=== PATIENT | male | born 1940 | race Caucasian/White ===

== ENCOUNTER 2016-09-18 12:19 | Inpatient (IN) ==
[2016-09-18] MEDS ORDERED: SODIUM CHLORIDE 0.9% 1,000 ML IV STA (12:52)
--- NOTE | 2016-09-18 12:54 | Emergency Department Note ---
Arrival - Arrival ED Nursing Triage Note: COMPLAINS OF BEING DIZZY AND ABD. PAIN FOR THE PAST WEEK. Mode of Arrival: Wheelchair Limitations: No Limitations Source: Patient - History of Present Illness Onset (ago): week(s) (1) Severity: mild <Velasquez Aguilera - Last Filed: 09/18/16 14:18> <Sterling Amaya Jr. - Last Filed: 09/18/16 14:59> - Arrival Chief Complaint: Abdominal / Flank Pain Stated Complaint: stomach and dizzy Time Seen by Provider: 09/18/16 12:43 - History of Present Illness HPI Narrative: This is a 76-year-old white male who is complaining of nausea/vomiting/diarrhea and diffuse abdominal pain for approximately 1 week. He also states that he is dizzy at times when he stands up. He states that he has seen his primary care provider and has been taking medicine for diarrhea and for nausea, and it seems to be better but he still feels ill. He is unsure of the number of episodes of vomiting and diarrhea that he has had in the past week. He states that he has been hydrating with mostly water but some Gatorade. He denies any fevers, dysuria, or any other symptoms at present. (Velasquez Aguilera) Allergies/Adverse Reactions: Allergies Allergy/AdvReac Type Severity Reaction Status Date / Time codeine Allergy Agitated Verified 09/18/16 12:36 Home Medications: Home Medications Medication Instructions Recorded Confirmed Type Allopurinol 100 mg PO QAM 09/18/16 09/18/16 History Amlodipine Besylate 10 mg PO QAM 09/18/16 09/18/16 History Clopidogrel Bisulfate [Clopidogrel] 75 mg PO QAM 09/18/16 09/18/16 History Esomeprazole Magnesium [Nexium] 20 mg PO BEDTIME PRN 09/18/16 09/18/16 History Hyoscyamine Sulfate 0.125 mg PO Q4H PRN 09/18/16 09/18/16 History Linagliptin [Tradjenta] 5 mg PO QAM 09/18/16 09/18/16 History Lisinopril 20 mg PO QAM 09/18/16 09/18/16 History Loperamide HCl [Loperamide] 2 mg PO Q6H PRN 09/18/16 09/18/16 History Omeprazole 20 mg PO QAM 09/18/16 09/18/16 History glipiZIDE [Glipizide ER] 2.5 mg PO DAILY W/BREAKFAST 09/18/16 09/18/16 History Review of System - Review of System 12 point system: reviewed and no additional remarkable complaints except as stated - Review of System Constitutional: Present: as per HPI. Absent: fever Gastrointestinal: Present: as per HPI, abdominal pain, nausea, vomiting, diarrhea <Velasquez Aguilera - Last Filed: 09/18/16 14:18> Medical,Surgical,& Family Hx - Medical History Cardio: History of: Hypertension Endocrine: History of: Diabetes Mellitus (NIDDM) - Surgical History Cardiac Surgeries: Sugical HX of: Cardiac Catheterization (STENTS) - Social History Smoking Status: Unknown if ever smoked <Velasquez Aguilera - Last Filed: 09/18/16 14:18> Exam <Velasquez Aguilera - Last Filed: 09/18/16 14:18> <Sterling Amaya Jr. - Last Filed: 09/18/16 14:59> Physical Examination: - General General appearance: [alert, in mild to moderate distress] - Head Head exam: [Present: atraumatic, normocephalic, normal inspection] - Eye Eye exam: [Present: normal appearance, PERRL, EOMI] - ENT ENT exam: [Present: normal exam, normal oropharynx, mucous membranes moist, TM' s normal bilaterally, normal external ear exam] - Neck Neck exam: [Present: normal inspection, full ROM, trachea midline] - Chest Chest inspection: [Present: normal inspection, symmetric chest wall rise] - Respiratory Respiratory exam: [Present: normal lung sounds bilaterally] - Cardiovascular Cardiovascular exam: [Present: regular rate, normal rhythm, normal heart sounds] - Abdominal Exam Abdominal exam: [Present: soft, normal bowel sounds. Exception: There is diffuse tenderness on palpation.] - Extremities Exam Extremities exam: [Present: normal inspection, full ROM] - Back Exam Back exam: [Present: normal inspection, full ROM] - Neurological Exam Neurological exam: [Present: alert, oriented X3] - Psychiatric Psychiatric exam: [Present: normal affect, normal mood] - Skin Skin exam: [Present: warm, dry, intact, normal color] (Velasquez Aguilera) Vital Signs: Vital Signs Temperature 98.1 F 09/18/16 12:45 Pulse Rate 83 09/18/16 14:30 Respiratory Rate 18 09/18/16 14:30 Blood Pressure 154/93 09/18/16 14:30 O2 Sat by Pulse Oximetry 98 09/18/16 12:29 Course - Consultations Time: 13:45 <Velasquez Aguilera - Last Filed: 09/18/16 14:18> - Reevaluation(s) Time: 14:28 - Consultations Time: 14:56 <Sterling Amaya Jr. - Last Filed: 09/18/16 14:59> - Reevaluation(s) Reevaluation #1: Assumed patient care at this time. pt with anemia, near syncope, dizziness, renal insufficiency, abdominal pain, upper GI bleed, hospitalist, to evaluate the patient for admission. We are waiting on their eval. (Sterling Amaya Jr.) - Consultations Consultation #1: I spoke with Raul and hospitalist services, and they will come see the patient in nonurgent. (Velasquez Aguilera) Consultation #2: Hospitalists have evaluated this patient and accept him for admission. (Sterling Amaya Jr.) Results - Labs CBC & BMP: 09/18/16 12:51 09/18/16 12:51 Lab Results: I have reviewed the patients labs <Velasquez Aguilera - Last Filed: 09/18/16 14:18> - Labs CBC & BMP: 09/18/16 12:51 09/18/16 12:51 Lab Results: I have reviewed the patients labs <Sterling Amaya Jr. - Last Filed: 09/18/16 14:59> - Labs Labs: Patient is heme positive. (Velasquez Aguilera) Disposition Case discussed with: patient <Velasquez Aguilera - Last Filed: 09/18/16 14:18> Case discussed with: patient Time of Disposition: 14:57 <Sterling Amaya Jr. - Last Filed: 09/18/16 14:59> Clinical Impression: GI bleeding, Near syncope, Dizziness, Anemia, Renal insufficiency Disposition: Still a Patient Condition: Stable
[2016-09-18 13:01] LABS: Basophils % 0.6 % (0.0-0.8); Eosinophils # 0.2 10*3/uL (0.0-0.87); Eosinophils % 2.3 % (0.00-10.9); Hematocrit 27.1 VOL% (42.0-52.0); Hemoglobin 8.5 GM/DL (14.0-18.0); Immature Granulocytes % 0.4 %; Immature Granulocytes Absolute 0.03 #; Lymphocytes # 1.7 10*3/uL (1.4-4.0); Lymphocytes % 24.8 % (21.2-54.2); Mean Corpuscular HGB Conc 31.4 GM/DL (32-36); Mean Corpuscular Hemoglobin 24 PG (27-34); Mean Corpuscular Volume 75.1 FL (87-102); Monocytes # 0.7 10*3/uL (0.11-0.8); Monocytes % 9.4 % (1.7-12.7); Neutrophils # 4.4 10*3/uL (1.4-7.4); Neutrophils % 62.5 % (38.7-73.9); Platelet Count 223 T/CUMM (130-400); Red Blood Count 3.61 MC/CUMM (3.8-5.5); Red Cell Distribution Width 22.4 % (9.3-17.3)
[2016-09-18 13:06] LABS: Apearance,Urine CLEAR (Clear); Bilirubin,Urine Negative (Negative); Blood, Urine Negative (Negative); Glucose,Urine (UA) Negative (Negative); Hyaline Casts,Urine 7 /LPF (0-3); Ketones,Urine Negative (Negative); Mucus,Urine Occasional /LPF (Occasional); Nitrite,Urine Negative (Negative); Protein,Urine 30 MG/DL; RBC,Urine 3 /HPF (0-4); Urine Color Yellow (Yellow); Urine Specific Gravity 1.017 (1.001-1.035); WBC,Urine 21 /HPF (0-6)
[2016-09-18 13:25] LABS: Calcium 8.6 MG/DL (8.5-10.1); Osmolality,Calculated 277.7 MOS/KG (273-304); Potassium 4.2 MMOL/L (3.5-5.1)
[2016-09-18] MEDS ORDERED: PANTOPRAZOLE 40 MG VIAL IV STA (13:46)
[2016-09-18] MEDS ORDERED: PANTOPRAZOLE 40 MG VIAL IV ONE (14:46)
--- NOTE | 2016-09-18 16:04 | Hospitalist History & Physical ---
Assessment and Plan (1) Anemia Status: Acute Assessment and plan: Serial H&H's. Consult GI to evaluate. Current Visit: Yes (2) Dizziness Status: Acute Assessment and plan: Admitted to [facility]. Patient's dizziness possibly secondary to low H&H. Serial H&H's ordered. Orthostatic blood pressures will be taken. Current Visit: Yes (3) GI bleeding Status: Acute Assessment and plan: Admitted to monitored bed. Serial H&H ordered. consult GI for evaluation. Current Visit: Yes (4) Diabetes Status: Acute Assessment and plan: Accu-Cheks before meals at bedtime. Sliding-scale insulin ordered the recorded in a.m. monitor blood sugar Current Visit: Yes History of Present Illness Chief complaint: abdominal pain History of present illness: Mr. Harrell is a 76 year old white male with a history of renal insufficiency, hypertension, diabetes, stent placement, and gout presented to the ED today with complaints of abdominal pain. Patient is accompanied by his son who is present at the bedside. Patient states that he has been having diffuse abdominal pain for about a month but that it has worsened in the last week. Patient describes the pain as crampy and achy. Patient states that he also feels dizzy when he stands up. Patient reports nausea and vomiting. Patient states that he has experienced diarrhea but the last 2 that he had it was formed. Patient states that he noted that he is to was dark in color. Patient states that it was not black but it was close in color. Patient denies fever, chills, shortness of breath, chest pain, dysuria or any other symptoms at this time. Patient states that he is seen by Dr. Abhijit Jang and Dr. Molina. He is also followed by Dr. Cortez for cardiology. Patient's son stated they he was scheduled to have a colonoscopy next week. Patient will be admitted to the hospitalist service for further evaluation and treatment Home Medications Medication Instructions Recorded Confirmed Type Allopurinol 100 mg PO QAM 09/18/16 09/18/16 History Amlodipine Besylate 10 mg PO QAM 09/18/16 09/18/16 History Clopidogrel Bisulfate [Clopidogrel] 75 mg PO QAM 09/18/16 09/18/16 History Esomeprazole Magnesium [Nexium] 20 mg PO BEDTIME PRN 09/18/16 09/18/16 History Hyoscyamine Sulfate 0.125 mg PO Q4H PRN 09/18/16 09/18/16 History Linagliptin [Tradjenta] 5 mg PO QAM 09/18/16 09/18/16 History Lisinopril 20 mg PO QAM 09/18/16 09/18/16 History Loperamide HCl [Loperamide] 2 mg PO Q6H PRN 09/18/16 09/18/16 History Omeprazole 20 mg PO QAM 09/18/16 09/18/16 History glipiZIDE [Glipizide ER] 2.5 mg PO DAILY W/BREAKFAST 09/18/16 09/18/16 History Allergies Allergy/AdvReac Type Severity Reaction Status Date / Time codeine Allergy Agitated Verified 09/18/16 12:36 Medical,Surgical,& Family Hx - Medical History Cardio: History of: Hypertension Endocrine: History of: Diabetes Mellitus (NIDDM) - Surgical History Cardiac Surgeries: Sugical HX of: Cardiac Catheterization (STENTS) - Social History Smoking Status: Current some day smoker Have you smoked in the last 12 months: Yes Frequency of Alcohol Use: None Type of Drug Use: None Lives With:: Alone Functional capacity: independent ambulation - Constitutional Constitutional: Present: weakness. Absent: chills, fever(s) - EENT Ears: Present: decreased hearing. Absent: ear discharge Nose, mouth and throat: Absent: headache(s) - Cardiovascular Cardiovascular: Present: dyspnea on exertion, edema, lightheadedness. Absent: chest pain at rest - Respiratory Respiratory: Present: dyspnea. Absent: hemoptysis - Gastrointestinal Gastrointestinal: Present: abdominal pain, nausea, vomiting - Genitourinary Genitourinary: Absent: difficulty urinating, urinary frequency - Neurological Neurological: Present: dizziness. Absent: confusion - Psychiatric Psychiatric: Absent: anxiety Exam - Constitutional Vitals: Period Temp Pulse Resp BP Sys/Short Pulse Ox Last 24 Hr 98.1 F-98.1 F 68-83 18-18 94-154/55-93 98 General appearance: normal weight, no acute distress - Head Head exam: Present: normal inspection, normocephalic - Eye Eye exam: Present: EOMI Pupils: Present: RAMIRO. Absent: unequal - Neck Neck exam: Present: normal inspection. Absent: thyromegaly - Respiratory Respiratory exam: Present: clear to auscultation bilaterally. Absent: wheezes - Cardiovascular Cardiovascular exam: Present: regular rate and rhythm - GI/Abdominal GI/Abdominal exam: Present: normal bowel sounds, tenderness, soft - Extremities Exam Extremities exam: Present: normal capillary refill, full ROM. Absent: edema - Neurological Exam Neurological exam: Present: alert, oriented X3, normal gait - Psychiatric Psychiatric exam: Present: normal affect, normal mood Results - Labs CBC & BMP: 09/18/16 12:51 09/18/16 12:51 Lab Results: I have reviewed the past 24 hour labs
[2016-09-18] MEDS ORDERED: NICOTINE 21 MG/24 HR PATCH TRANSDERM PRN (16:09)
[2016-09-18] MEDS ORDERED: ACETAMINOPHEN 325 MG TABLET PO PRN (16:09)
[2016-09-18] MEDS ORDERED: DOCUSATE SODIUM 100 MG CAPSULE PO PRN (16:09)
[2016-09-18 16:30] LABS: Hematocrit 26.8 VOL% (42.0-52.0); Hemoglobin 8.1 GM/DL (14.0-18.0)
[2016-09-18] MEDS ORDERED: DEXTROSE 50% 25 GM/50 ML VIAL IV PRN (16:32)
[2016-09-18] MEDS ORDERED: GLUCAGON 1 MG VIAL IM PRN (16:32)
[2016-09-18] MEDS: SODIUM CHLORIDE 0.9% 1,000 ML IV SCH (17:16)
[2016-09-18 18:59] LABS: Anisocytosis 1+; Hypochromasia Slight; Microcytosis 1+; Platelet Estimate Normal
[2016-09-18] MEDS: INSULIN LISPRO 100 UNIT/ML SUBCUT SCH (21:16)
[2016-09-18 21:39] LABS: Hematocrit 25.5 VOL% (42.0-52.0); Hemoglobin 7.9 GM/DL (14.0-18.0)
[2016-09-19] MEDS: SODIUM CHLORIDE 0.9% 1,000 ML IV SCH ×2 (06:21→20:39)
[2016-09-19 06:34] LABS: Hematocrit 25.3 VOL% (42.0-52.0); Hemoglobin 7.8 GM/DL (14.0-18.0)
[2016-09-19 06:36] LABS: Basophils % 0.5 % (0.0-0.8); Eosinophils # 0.2 10*3/uL (0.0-0.87); Eosinophils % 3.5 % (0.00-10.9); Hematocrit 24.9 VOL% (42.0-52.0); Hemoglobin 7.6 GM/DL (14.0-18.0); Immature Granulocytes % 0.3 %; Immature Granulocytes Absolute 0.02 #; Lymphocytes # 1.9 10*3/uL (1.4-4.0); Lymphocytes % 29.3 % (21.2-54.2); Mean Corpuscular HGB Conc 30.5 GM/DL (32-36); Mean Corpuscular Hemoglobin 23 PG (27-34); Mean Corpuscular Volume 75.2 FL (87-102); Monocytes # 0.6 10*3/uL (0.11-0.8); Monocytes % 8.7 % (1.7-12.7); Neutrophils # 3.6 10*3/uL (1.4-7.4); Neutrophils % 57.7 % (38.7-73.9); Platelet Count 200 T/CUMM (130-400); Red Blood Count 3.31 MC/CUMM (3.8-5.5); Red Cell Distribution Width 21.9 % (9.3-17.3); White Blood Count 6.3 T/CUMM (4-12)
[2016-09-19 06:40] LABS: INR 1.1; PT Patient Result 11.5 SECS
[2016-09-19 07:20] LABS: Calcium 8.4 MG/DL (8.5-10.1); Magnesium 1.9 MG/DL (1.8-2.4); Osmolality,Calculated 279.4 MOS/KG (273-304); Potassium 4.4 MMOL/L (3.5-5.1); Risk Ratio 6.8; Thyroid Stimulating Hormone 0.94 uIU/ml (0.358-3.74); VLDL CHOLESTEROL 31.6 MG/DL
[2016-09-19 07:29] LABS: Hypochromasia 1+; Ovalocytes Slight
[2016-09-19 07:30] LABS: Microcytosis 1+; Platelet Estimate Normal
[2016-09-19] MEDS: INSULIN LISPRO 100 UNIT/ML SUBCUT SCH ×4 (08:34→21:08)
[2016-09-19] MEDS: PANTOPRAZOLE 40 MG TABLET PO SCH (09:45)
[2016-09-19 10:05] LABS: Hematocrit 25.1 VOL% (42.0-52.0); Hemoglobin 7.8 GM/DL (14.0-18.0)
--- NOTE | 2016-09-19 10:38 | Hospitalist Progress Note ---
Assessment and Plan - Time spent with patient Time spent with patient: Less than 30 minutes (1) Anemia Status: Acute Assessment and plan: Patient has anemia. We are following serial hemoglobin and hematocrits. Will obtain anemia studies and stools for occult blood. GI has been consulted to assist with further evaluation as well as his abdominal discomfort. Current Visit: Yes (2) Diabetes Status: Chronic Assessment and plan: Continue with current regimen. Blood sugars under pretty good control. Current Visit: Yes Qualifiers: Diabetes mellitus type: type 2 (3) Dizziness Status: Acute Assessment and plan: He denies any dizziness at this time. Current Visit: Yes (4) Renal insufficiency Status: Chronic Assessment and plan: Creatinine is slightly improved today. We will continue his current medical regimen and follow closely while avoiding any potential nephrotoxic insults or injury. Current Visit: Yes Hospitalist: Subjective Interval history: Patient seen and chart examined. Patient states that he has had no chest pain, shortness breath, dizziness. He states stools have been sent for testing. He has improved abdominal pain. Gastroenterology is scheduled to see him. Exam - Constitutional Vitals: Period Temp Pulse Resp BP Sys/Short Pulse Ox Last 24 Hr 97.9 F-99.1 F 63-83 14-20 94-154/54-93 95-98 General appearance: no acute distress - Head Head exam: Present: normocephalic, atraumatic - Eye Eye exam: Present: EOMI Pupils: Present: RAMIRO - ENT ENT exam: Present: normal exam - Neck Neck exam: Present: normal inspection - Respiratory Respiratory exam: Present: clear to auscultation bilaterally - Cardiovascular Cardiovascular exam: Present: regular rate and rhythm. Absent: tachycardia - GI/Abdominal GI/Abdominal exam: Present: normal bowel sounds, soft. Absent: distended, tenderness, rebound - Extremities Exam Extremities exam: Absent: calf tenderness, edema - Back Exam Back exam: Present: normal inspection - Neurological Exam Neurological exam: Present: alert, oriented X3, CN II-XII intact. Absent: motor sensory deficit - Psychiatric Psychiatric exam: Present: normal affect, normal mood. Absent: agitated, anxious - Skin Skin exam: Present: warm, dry. Absent: erythema Results - Labs CBC & BMP: 09/19/16 09:51 09/19/16 05:51 Lab Results: I have reviewed the past 24 hour labs
[2016-09-19] MEDS ORDERED: ALLOPURINOL 100 MG TABLET PO PRN (10:44)
[2016-09-19] MEDS ORDERED: PANTOPRAZOLE 40 MG TABLET PO PRN (10:44)
[2016-09-19 11:17] LABS: Basophils % 0.5 % (0.0-0.8); Eosinophils # 0.2 10*3/uL (0.0-0.87); Eosinophils % 2.6 % (0.00-10.9); Hematocrit 26.1 VOL% (42.0-52.0); Immature Granulocytes % 0.5 %; Immature Granulocytes Absolute 0.03 #; Lymphocytes # 1.7 10*3/uL (1.4-4.0); Lymphocytes % 27.1 % (21.2-54.2); Mean Corpuscular HGB Conc 30.7 GM/DL (32-36); Mean Corpuscular Hemoglobin 23 PG (27-34); Mean Corpuscular Volume 76.1 FL (87-102); Mean Platelet Volume 11.1 FL (9.6-12.0); Monocytes # 0.5 10*3/uL (0.11-0.8); Monocytes % 8.5 % (1.7-12.7); Neutrophils # 3.8 10*3/uL (1.4-7.4); Neutrophils % 60.8 % (38.7-73.9); Platelet Count 212 T/CUMM (130-400); Red Blood Count 3.43 MC/CUMM (3.8-5.5); Red Cell Distribution Width 21.8 % (9.3-17.3); White Blood Count 6.2 T/CUMM (4-12)
--- NOTE | 2016-09-19 11:17 | Gastrointestinal Consult Note ---
Assessment and Plan - Time spent with patient Time spent with patient: Greater than 30 minutes (1) GI bleeding Status: Acute Current Visit: Yes (2) Anemia Status: Acute Current Visit: Yes (3) Other specified counseling Status: Acute Current Visit: Yes History of Present Illness History of present illness: Mr. Harrell is a 76 year old male Home Medications Medication Instructions Recorded Confirmed Type Allopurinol 100 mg PO QAM PRN 09/18/16 09/18/16 History Amlodipine Besylate 10 mg PO QAM 09/18/16 09/18/16 History Clopidogrel Bisulfate [Clopidogrel] 75 mg PO QAM 09/18/16 09/18/16 History Esomeprazole Magnesium [Nexium] 20 mg PO BEDTIME PRN 09/18/16 09/18/16 History Hyoscyamine Sulfate 0.125 mg PO Q4H PRN 09/18/16 09/18/16 History Linagliptin [Tradjenta] 5 mg PO QAM 09/18/16 09/18/16 History Lisinopril 20 mg PO QAM 09/18/16 09/18/16 History Loperamide HCl [Loperamide] 2 mg PO Q6H PRN 09/18/16 09/18/16 History glipiZIDE [Glipizide ER] 2.5 mg PO DAILY W/BREAKFAST 09/18/16 09/18/16 History Allergies Allergy/AdvReac Type Severity Reaction Status Date / Time codeine Allergy Agitated Verified 09/18/16 12:36 Medical,Surgical,& Family Hx - Medical History Cardio: History of: Hypertension Psychological: No history of: Anxiety Disorders, ADHD, Behavior Problems, Bipolar Disorder, Depression, Previous Suicide Attempt, Psychiatric/Substance Abuse Tx, Schizophrenia, Violent Behavior, Psychiatric Problems Endocrine: History of: Diabetes Mellitus (NIDDM) - Surgical History Cardiac Surgeries: Sugical HX of: Cardiac Catheterization (STENTS) - Social History Smoking Status: Current some day smoker Frequency of Alcohol Use: None Type of Drug Use: None Exam - Constitutional Vitals: Period Temp Pulse Resp BP Sys/Short Pulse Ox Last 24 Hr 97.9 F-99.1 F 63-83 14-20 94-154/54-93 95-98 Results - Labs CBC & BMP: 09/19/16 11:05 09/19/16 05:51 Note Addendum: PLEASE NOTE -- automatic citation of patient information is unavoidable in this electronic note. I have made a reasonable effort to review the information cited , but it is not a part of my evaluation, impression, or recommendation unless specifically discussed in the dictated text that follows. As well, voice recognition software was used in the creation of this clinical note. Reasonable effort was made to identify and correct gross errors. Despite proofreading, errors in flight control specialist may be present, including nonsense verbiage at times. If you encounter such an error, please contact me at for discussion and correction. -- Efraín Chief complaint: abdominal pain, anemia History of present illness: This is a new patient, a 76-year-old male seen by consultation for evaluation of suspected gastrointestinal bleeding. The patient is admitted to the hospitalist service under the care of Dr. Willett with a primary diagnosis of symptomatic anemia. The patient was admitted through the emergency department yesterday with primary complaint of abdominal pain for about one month. Evaluation at that time revealed anemia with hemoglobin less than 9 g/dL. since admission the patient has been treated with fluid resuscitation, proton pump inhibitor, and antibiotic. His abdominal pain. His blood counts have trended down slightly to just less than 8 g/dL. No overt bleeding has been documented. Patient reports feeling pretty good at present. This last bowel movement was this morning and had no obvious blood. Patient denies fever, chills, night sweats, rigors, headache, neck pain, visual changes, redness of the eyes, dysphagia, odynophagia, difficulty chewing, chest pain, shortness of breath, weight loss, vomiting, regurgitation, hematemesis, diarrhea, proctalgia, constipation, dysuria, skin changes, temperature regulation issues, flushing, easy bleeding/bruising, numbness/weakness in the extremities, yellowing of the eyes/skin, cutaneous eruptions, family history of gastrointestinal cancer and colon polyps, and other complaints in general. Review of systems: 12 point review of systems was negative except as documented above. Outpatient medications: glipizide, loperamide, bentyl, Nexium, allopurinol, amlodipine, linigliptin, plavix, lisinopril Inpatient medications: Tylenol, allopurinol, ampicillin, Colace, glipizide, Humalog, nicotine patch, Protonix, Januvia, normal saline infusion Past Medical History: hypertension, diabetes, coronary artery disease with prior stenting Social history: positive tobacco. Negative alcohol Family history: no gastrointestinal cancers Physical examination: Vital Signs: Current vital signs reviewed and documented above. General Appearance: well-appearing. Not acutely ill. Head: Normocephalic. Neck: Palpation of the neck revealed no abnormalities. Eyes: No scleral icterus. No scleral injection. No conjunctival pallor. Oral Cavity: Odor of breath was normal. No drooling was observed. Lips showed no abnormalities. Floor of the mouth showed no abnormalities. Pharynx: Oropharynx was normal. Lungs: Respiration rhythm and depth was normal. Cardiovascular: Heart rate and rhythm were normal. No murmurs were appreciated. Abdomen: abdomen was not distended. Abdominal palpation revealed no tenderness and no hepatosplenomegaly. Ascites was not discovered. Abdominal auscultation revealed positive bowel sounds. Musculoskeletal System: Musculoskeletal system was grossly normal. Neurological: level of consciousness was normal. Speech was normal. Skin: General appearance was normal. Color and pigmentation were normal. No skin lesions. Laboratory: hemoglobin 7.8, hematocrit 25.1, INR 1.1, PT 11.5 Radiology: reviewed Impressions: 1. Melena -- the differential diagnosis includes peptic ulcer, gastritis/ esophagitis generally, gastrointestinal malignancy, right-sided diverticular bleeding arteriovenous malformation, and others. I recommend serial hemoglobin and hematocrit monitoring with transfusion as indicated. I recommend aggressive crystalloid resuscitation as indicated. I recommend intravenous proton pump inhibitor. Patient will need upper endoscopy with timing dependent on clinical progress. We will tentatively plan this for Wednesday but will do over the weekend if indicated. 2. Symptomatic anemia -- the patient is macrocytic supporting the possibility of chronic blood loss. I recommend continued monitoring with transfusion as indicated. I also recommend monitoring/management post discharge until normal. 3. Other specified counseling -- The patient was seen for greater than 30 minutes. The patient was counseled for greater than 50% of this time regarding differential diagnosis, likely diagnosis, diagnostic and therapeutic alternatives, risks/benefits/alternatives of medications and procedures, and plan of care generally. The patient expressed understanding and wishes to proceed. Recommendations: -- aggressive crystalloid resuscitation -- transfusion as indicated -- serial hemoglobin and hematocrit monitoring -- upper endoscopy with timing dependent on clinical progress, likely Wednesday -- colonoscopy if no finding on upper endoscopy -- patient may need video capsule endoscopy if upper and lower endoscopy is nondiagnostic -- thank you for consultation. We will follow with you.
[2016-09-19 12:02] LABS: Folate 14.6 NG/ML (5.4-24.0); Vitamin B12 473 PG/ML (211-911)
[2016-09-19 12:06] LABS: Hypochromasia 1+; Ovalocytes Slight; Platelet Estimate Adequate
[2016-09-19 12:07] LABS: Macrocytosis 1+
[2016-09-19] MEDS: AMPICILLIN INJ 1,000 MG in SODIUM CHLORIDE 0.9% 100 ML IV SCH ×3 (12:10→22:19)
[2016-09-19 12:20] LABS: Sedimentation Rate-Westergren 66 MM/HR (0-20)
[2016-09-19 17:48] LABS: Hematocrit 25.4 VOL% (42.0-52.0); Hemoglobin 7.8 GM/DL (14.0-18.0)
[2016-09-20 00:51] LABS: INR 1.1; PT Patient Result 11.5 SECS
[2016-09-20 00:57] LABS: Basophils % 0.5 % (0.0-0.8); Eosinophils # 0.2 10*3/uL (0.0-0.87); Eosinophils % 3.1 % (0.00-10.9); Hematocrit 25.4 VOL% (42.0-52.0); Hemoglobin 7.9 GM/DL (14.0-18.0); Immature Granulocytes % 0.3 %; Immature Granulocytes Absolute 0.02 #; Lymphocytes # 2.4 10*3/uL (1.4-4.0); Lymphocytes % 36.8 % (21.2-54.2); Mean Corpuscular HGB Conc 31.1 GM/DL (32-36); Mean Corpuscular Hemoglobin 23 PG (27-34); Mean Corpuscular Volume 74.5 FL (87-102); Monocytes # 0.6 10*3/uL (0.11-0.8); Monocytes % 8.6 % (1.7-12.7); Neutrophils # 3.3 10*3/uL (1.4-7.4); Neutrophils % 50.7 % (38.7-73.9); Platelet Count 198 T/CUMM (130-400); Red Blood Count 3.41 MC/CUMM (3.8-5.5); Red Cell Distribution Width 21.6 % (9.3-17.3); White Blood Count 6.4 T/CUMM (4-12)
[2016-09-20 01:05] LABS: Calcium 8.2 MG/DL (8.5-10.1); Magnesium 1.7 MG/DL (1.8-2.4); Osmolality,Calculated 277.5 MOS/KG (273-304); Potassium 3.9 MMOL/L (3.5-5.1)
[2016-09-20] MEDS: AMPICILLIN INJ 1,000 MG in SODIUM CHLORIDE 0.9% 100 ML IV SCH ×4 (05:31→23:07)
[2016-09-20 06:14] LABS: Hematocrit 25.5 VOL% (42.0-52.0); Hemoglobin 7.7 GM/DL (14.0-18.0)
[2016-09-20] MEDS: INSULIN LISPRO 100 UNIT/ML SUBCUT SCH ×4 (07:05→20:29)
--- NOTE | 2016-09-20 08:20 | Hospitalist Progress Note ---
Assessment and Plan - Time spent with patient Time spent with patient: Less than 30 minutes (1) Anemia Status: Acute Assessment and plan: Patient has anemia. We are following serial hemoglobin and hematocrits. Will obtain anemia studies and stools for occult blood. GI has been consulted to assist with further evaluation as well as his abdominal discomfort. 09/20/16: H&H been relatively stable. Stool for occult blood is been negative. Note plans for possible upper endoscopy tomorrow by GI. Ferritin is low consistent with iron deficiency anemia. Current Visit: Yes Qualifiers: Anemia type: iron deficiency (2) Diabetes Status: Chronic Assessment and plan: Continue with current regimen. Blood sugars under pretty good control. Current Visit: Yes Qualifiers: Diabetes mellitus type: type 2 (3) Dizziness Status: Resolved Assessment and plan: He denies any dizziness at this time. Current Visit: Yes (4) Renal insufficiency Status: Chronic Assessment and plan: Creatinine is slightly improved today. We will continue his current medical regimen and follow closely while avoiding any potential nephrotoxic insults or injury. 09/20/16: Creatinine is at 1.5 and stable. Current Visit: Yes (5) UTI (urinary tract infection) Status: Acute Assessment and plan: Patient has noted UTI with urine culture revealing greater than 100,000 colonies of gram-positive cocci. He has been placed on empiric IV ampicillin and will make adjustments based on final ID and sensitivities. Current Visit: Yes Hospitalist: Subjective Interval history: Mr. Harrell is doing well. Son was in the room. He denies any chest pain, shortness breath, abdominal pain, nausea, vomiting, diarrhea, constipation. He states has not had another bowel movement since yesterday but has to go now. Exam - Constitutional Vitals: Period Temp Pulse Resp BP Sys/Short Pulse Ox Last 24 Hr 97.7 F-98.9 F 69-77 14-22 131-151/63-83 96-98 General appearance: no acute distress - Head Head exam: Present: normocephalic, atraumatic - Eye Eye exam: Present: EOMI Pupils: Present: RAMIRO - ENT ENT exam: Present: normal exam - Neck Neck exam: Present: normal inspection - Respiratory Respiratory exam: Present: clear to auscultation bilaterally - Cardiovascular Cardiovascular exam: Present: regular rate and rhythm. Absent: tachycardia - GI/Abdominal GI/Abdominal exam: Present: normal bowel sounds, soft. Absent: tenderness, rebound - Extremities Exam Extremities exam: Absent: calf tenderness, edema - Back Exam Back exam: Present: normal inspection - Neurological Exam Neurological exam: Present: alert, oriented X3, CN II-XII intact. Absent: motor sensory deficit - Psychiatric Psychiatric exam: Present: normal affect, normal mood. Absent: agitated, anxious - Skin Skin exam: Present: warm, dry. Absent: erythema Results - Labs CBC & BMP: 09/20/16 05:50 09/20/16 00:18 Lab Results: I have reviewed the past 24 hour labs
[2016-09-20] MEDS: sitaGLIPtin 100 MG TABLET PO SCH (08:34)
[2016-09-20] MEDS: PANTOPRAZOLE 40 MG TABLET PO SCH (08:34)
[2016-09-20] MEDS ORDERED: LISINOPRIL 20 MG TABLET PO SCH (09:00)
[2016-09-20] MEDS ORDERED: amLODIPine 10 MG TABLET PO SCH (09:00)
[2016-09-20] MEDS: SODIUM CHLORIDE 0.9% 1,000 ML IV SCH (13:18)
--- NOTE | 2016-09-20 15:01 | Gastrointestinal Progress Note ---
Assessment and Plan - Time spent with patient Time spent with patient: Less than 30 minutes (1) GI bleeding Status: Acute Current Visit: Yes (2) Anemia Status: Acute Current Visit: Yes Qualifiers: Anemia type: iron deficiency (3) Other specified counseling Status: Acute Current Visit: Yes Exam (Progress Note) - Constitutional Vitals: Period Temp Pulse Resp BP Sys/Short Pulse Ox Last 24 Hr 97.7 F-98.9 F 63-77 14-22 128-151/64-83 96-98 Results - Labs CBC & BMP: 09/20/16 05:50 09/20/16 00:18 Note Addendum: PLEASE NOTE -- automatic citation of patient information is unavoidable in this electronic note. I have made a reasonable effort to review the information cited , but it is not a part of my evaluation, impression, or recommendation unless specifically discussed in the dictated text that follows. As well, voice recognition software was used in the creation of this clinical note. Reasonable effort was made to identify and correct gross errors. Despite proofreading, errors in locator may be present, including nonsense verbiage at times. If you encounter such an error, please contact me at for discussion and correction. -- Efraín Chief complaint: abdominal pain, anemia History of present illness: the patient is a 76-year-old male seen for follow- up of symptomatic anemia. No overt bleeding has been documented overnight. Bottle signs have been stable. The patient has had no bowel movements documented. He is eating and drinking clear liquids comfortably. He has no gastrointestinal complaints at present. Review of systems: 12 point review of systems was negative except as documented above. Inpatient medications: Tylenol, allopurinol, ampicillin, Colace, glipizide, Humalog, nicotine patch, Protonix, Januvia, normal saline infusion Physical examination: Vital Signs: Current vital signs reviewed and documented above. General Appearance: well-appearing. Not acutely ill. Head: Normocephalic. Neck: Palpation of the neck revealed no abnormalities. Eyes: No scleral icterus. No scleral injection. No conjunctival pallor. Oral Cavity: Odor of breath was normal. No drooling was observed. Lips showed no abnormalities. Floor of the mouth showed no abnormalities. Pharynx: Oropharynx was normal. Lungs: Respiration rhythm and depth was normal. Cardiovascular: Heart rate and rhythm were normal. No murmurs were appreciated. Abdomen: abdomen was not distended. Abdominal palpation revealed no tenderness and no hepatosplenomegaly. Ascites was not discovered. Abdominal auscultation revealed positive bowel sounds. Musculoskeletal System: Musculoskeletal system was grossly normal. Neurological: level of consciousness was normal. Speech was normal. Skin: General appearance was normal. Color and pigmentation were normal. No skin lesions. Laboratory: hemoglobin 7.7, hematocrit 25.5, fecal occult blood negative Radiology: reviewed Impressions: 1. Melena -- we will proceed with upper endoscopy tomorrow. If no finding, patient may need to remain for colonoscopy or, potentially have this done in the outpatient setting. 2. Symptomatic anemia -- the patient is microscopic supporting the possibility of chronic blood loss. I recommend continued monitoring with transfusion as indicated. I also recommend monitoring/management post discharge until normal. 3. Other specified counseling -- The patient was seen for less than 30 minutes. The patient was counseled for greater than 50% of this time regarding differential diagnosis, likely diagnosis, diagnostic and therapeutic alternatives, risks/benefits/alternatives of medications and procedures, and plan of care generally. The patient expressed understanding and wishes to proceed. Recommendations: -- continued crystalloid resuscitation -- transfusion as indicated -- serial hemoglobin and hematocrit monitoring -- upper endoscopy tomorrow -- colonoscopy if no finding on upper endoscopy -- patient may need video capsule endoscopy if upper and lower endoscopy is nondiagnostic -- we will continue to follow with you. Dr. Marroquin will assume G.I. care for this patient tomorrow.
[2016-09-21 05:18] LABS: INR 1.1; PT Patient Result 11.5 SECS
[2016-09-21] MEDS: AMPICILLIN INJ 1,000 MG in SODIUM CHLORIDE 0.9% 100 ML IV SCH ×4 (06:11→23:11)
--- NOTE | 2016-09-21 07:16 | Physician Query Form ---
CLICK EDIT DOCUMENT TO SELECT QUERY ANSWER --> OK --> SIGN Dannielle Nielsen RN, CCDS Certified Clinical Credit Verifier W) [phone] (f) [phone] [email or web address]: Make your selection(s) from the choices in EACH section by typing an "x" and enter comments in the comment section. Please use your independent medical judgment in providing your response. This request does not imply that any particular answer is desired or expected. CLINICAL INDICATORS: (Providers should not edit this section) The medical record indicates that the patient was admitted with GI bleeding, renal insufficiency, CKD, creatinine of 1.70, GFR of 48# and the "patient has been treated with fluid resuscitation". Clarify which of the following most accurately represents the patient's renal status: ( ) Acute kidney injury (non-traumatic) ( ) Acute renal failure ( ) Acute renal failure with underlying Chronic Kidney Disease (CKD) - please provide stage below ( ) Acute renal failure with pathological renal lesion ( ) Acute renal failure with necrosis ( ) tubular ( ) medullary ( ) cortical ( x) CKD - please provide stage below ( ) End Stage Renal Disease ( ) Acute interstitial nephritis ( ) Hepatorenal syndrome ( ) Other, please specify: ( ) Clinically unable to determine Chronic Kidney Disease Stages Source: National Kidney Disease Foundation ( ) Stage I (eGFR > or = 90) ( ) Stage II (eGFR 60 - 89) (x ) Stage III (eGFR 30 - 59) ( ) Stage IV (eGFR 15 - 29) ( ) Stage V (eGFR < 15 or dialysis) COMMENTS: PLEASE ALSO DOCUMENT RESPONSE IN PROGRESS NOTES AND/OR DISCHARGE SUMMARY Use of terms such as suspected, likely, or probable (associated with a specific diagnosis that is being evaluated, monitored, or treated as if it exists) are acceptable and can be restated in the discharge summary if not ruled out. MTDD
[2016-09-21 07:21] LABS: Hemoglobin A1 (Alkaline) 97.2 % (96.5-98.5); Hemoglobin A2 (Alkaline) 2.8 % (1.5-3.5)
[2016-09-21] MEDS: INSULIN LISPRO 100 UNIT/ML SUBCUT SCH ×4 (08:27→20:51)
[2016-09-21 08:57] LABS: Hematocrit 26.7 VOL% (42.0-52.0); Hemoglobin 8.3 GM/DL (14.0-18.0)
--- NOTE | 2016-09-21 11:12 | History and Physical Update ---
History and Physical Update - Physical Exam Mental Status: alert and oriented Heart: regular rate and rhythm Lung: clear to auscultation Abdomen: within normal limits Vitals: within normal limits
--- NOTE | 2016-09-21 11:19 | Operative Note ---
Date of procedure: 09/21/16 Pre-op diagnosis: Melena on chronic anticoagulation Procedure: EGD 76-year-old gentleman admitted with anemia reported melena he is on chronic anticoagulation with Plavix. He is now for upper endoscopy to further evaluate. Informed symptoms obtained he was sedated with MAC anesthesia per anesthesia protocol. Patient placed in supine position head of bed at 30 he is very hard of hearing. The Olympus flexible video upper endoscope is her lower cavity direct vision the esophagus intubated. Findings: Esophagus-normal proximal mid esophageal mucosa distal esophagus with moderate hiatal hernia. No significant stricture esophagitis varices or Altamirano's was identified. Stomach-normal insufflation normal mucosa to direct retroflexed views of the body fundus cardia and antrum the stomach. No blood is present. Pylorus-normal Duodenum-in the bulb and duodenum there is a umbilicated lesion with small central ulceration this is not bleeding the no visible vessels. Additionally AVMs are seen in the small intestine. There is no active bleeding. No biopsies are taken due to his anticoagulation. The procedure terminated patient discharge recovery in good condition Postop diagnosis 1. Duodenal ulcer no active bleeding continue PPI treatment. Will need to continue to hold Plavix 2. Angiodysplasia-hold Plavix and continue to observe. 3. Consider colonoscopy once Plavix has been held 5 days. Anesthesia: MAC Surgeon / Physician: Dickson Marroquin Estimated blood loss: none Specimens: none sent Condition: stable Disposition: post procedure unit Results - Labs CBC & BMP: 09/21/16 08:45 09/20/16 00:18 Discharge Plan - Discharge Medications No Action Amlodipine Besylate 10 mg PO QAM Clopidogrel Bisulfate [Clopidogrel] 75 mg PO QAM glipiZIDE [Glipizide ER] 2.5 mg PO DAILY W/BREAKFAST Hyoscyamine Sulfate 0.125 mg PO Q4H PRN PRN Reason: STOMACH PAINS Lisinopril 20 mg PO QAM Loperamide HCl [Loperamide] 2 mg PO Q6H PRN PRN Reason: Diarrhea Allopurinol 100 mg PO QAM PRN PRN Reason: Gout Esomeprazole Magnesium [Nexium] 20 mg PO BEDTIME PRN PRN Reason: GERD Linagliptin [Tradjenta] 5 mg PO QAM - Follow Up or Referral - Forms/Instructions
--- NOTE | 2016-09-21 11:26 | Anesthesia Post-Op ---
Anesthesia Post OP - Post Ansesthetic Evaluation Patient seen in post op: Yes Resp: within normal limits CV: within normal limits Mental: within normal limits Temp: within normal limits [id number]: within normal limits Nausea and Vomiting: within normal limits Pain: within normal limits
[2016-09-21] MEDS: sitaGLIPtin 100 MG TABLET PO SCH (12:20)
[2016-09-21] MEDS: PANTOPRAZOLE 40 MG TABLET PO SCH (12:20)
[2016-09-21] MEDS: SODIUM CHLORIDE 0.9% 1,000 ML IV SCH (12:22)
--- NOTE | 2016-09-21 15:53 | Hospitalist Progress Note ---
Assessment and Plan (1) UGI bleed Status: Acute Assessment and plan: EGD duodenal ulcer with angiodysplasia. Hold Plavix for now. Once patient is off Plavix for [address] Marroquin would like to do a colonoscopy. Family says patient had a stent 7 years ago should be okay to stop. Current Visit: Yes (2) Acute blood loss anemia Status: Acute Assessment and plan: Hemoglobin in a.m., hemoglobin 8.3. Continue Protonix. Current Visit: Yes (3) Hypertension Status: Acute Assessment and plan: restart norvasc Current Visit: Yes (4) Diabetes Status: Chronic Assessment and plan: Continue glipizide. Current Visit: Yes Qualifiers: Diabetes mellitus type: type 2 (5) UTI (urinary tract infection) Status: Acute Assessment and plan: Growing staph hemolyticus which is most likely a contaminant. Being treated with ampicillin. Current Visit: Yes (6) Chronic renal failure, stage 3 (moderate) Status: Acute Assessment and plan: Hold lisinopril Current Visit: Yes Hospitalist: Subjective Interval history: Patient had an EGD today and did quite well. Patient does have a duodenal ulcer no active bleeding were found. He also has angiodysplasia and needs to hold Plavix for now. Exam - Constitutional Vitals: Period Temp Pulse Resp BP Sys/Short Pulse Ox Last 24 Hr 97.3 F-98.7 F 60-91 12-20 114-169/54-81 95-99 Exam: Heart Rate-[RRR] Lungs-[CTAB] GI-[+bs soft, NT] Ext-[no edema] Neuro [Motor 5/5], [alert and oriented times 3] psych [normal mood and affect] General [no acute distress] Results - Labs CBC & BMP: 09/21/16 08:45 09/20/16 00:18 Lab Results: I have reviewed the past 24 hour labs
[2016-09-21] MEDS: amLODIPine 10 MG TABLET PO SCH (16:56)
[2016-09-22] MEDS: AMPICILLIN INJ 1,000 MG in SODIUM CHLORIDE 0.9% 100 ML IV SCH ×2 (05:13→10:35)
[2016-09-22] MEDS: INSULIN LISPRO 100 UNIT/ML SUBCUT SCH ×2 (08:31→12:07)
[2016-09-22] MEDS: PANTOPRAZOLE 40 MG TABLET PO SCH (08:32)
[2016-09-22] MEDS: sitaGLIPtin 100 MG TABLET PO SCH (08:32)
[2016-09-22] MEDS: amLODIPine 10 MG TABLET PO SCH (08:32)
--- NOTE | 2016-09-22 09:03 | Gastrointestinal Progress Note ---
<Mary Poseyher Aleksandra - Last Filed: 09/22/16 09:01> Assessment and Plan (1) UGI bleed Status: Acute Assessment and plan: 09/22-EGD findings noted. Hemoglobin 7.6. To be transfused today. Tentative plans for discharge post transfusion per patient. Plan an addendum to follow by Dr. Marroquin. Gastroenterology - PN: Subj Interval history: CC: Melena Patient is seen awake and alert, at bedside. He is post EGD on yesterday with findings of duodenal ulcer without active bleeding and angiodysplasias. Patient has a good appetite and tolerating diet well. He denies any bleeding at this time. He is noted to have a decrease in his hemoglobin from 8.3-7.6 today. He states that he is to receive a transfusion today and is going to be discharged later this afternoon. Abdomen is soft, nontender. Discussed proceeding with colonoscopy and patient to consider the timing of this. He states he was placed on his blood thinner by Dr. Cortez at [facility]. This continues to be held at this time. ROS: Denies shortness of breath or chest pain Exam (Progress Note) - Constitutional Vitals: Period Temp Pulse Resp BP Sys/Short Pulse Ox Last 24 Hr 97.6 F-99.4 F 65-83 12-20 123-169/59-81 93-99 General appearance: normal weight, no acute distress - Head Head exam: Present: normal inspection, normocephalic - Eye Eye exam: Present: other (Lids and conjunctive are unremarkable). Absent: scleral icterus - ENT ENT exam: Present: normal exam, normal oropharynx - Neck Neck exam: Present: normal inspection - Respiratory Respiratory exam: Present: clear to auscultation bilaterally. Absent: rales, rhonchi, wheezes - Cardiovascular Cardiovascular exam: Present: regular rate and rhythm. Absent: diastolic murmur , JVD, systolic murmur - GI/Abdominal GI/Abdominal exam: Present: normal bowel sounds, soft. Absent: ascites, distended, mass, organomegaly, tenderness - Extremities Exam Extremities exam: Present: normal inspection, full ROM - Back Exam Back exam: Present: normal inspection - Neurological Exam Neurological exam: Present: alert, oriented X3 - Psychiatric Psychiatric exam: Present: normal affect, normal mood - Skin Skin exam: Present: normal color, warm, dry Results - Labs CBC & BMP: 09/22/16 05:13 09/20/16 00:18 Lab Results: I have reviewed the past 24 hour labs Specialty Discharge - Follow Up or Referrals Follow up with: Dr RADHA [Other] - 1 Week Dickson Marroquin MD [Physician] - 09/25/16 8:15 am (Be admission at [facility] at 8am for Colonscope. Nothing to eat/drink after midnight. Must have a hack driver to bring you and take you home.) <Dickson Marroquin - Last Filed: 09/22/16 19:06> Exam (Progress Note) - Constitutional Vitals: Period Temp Pulse Resp BP Sys/Short Pulse Ox Last 24 Hr 96.5 F-99.4 F 69-83 16-20 124-149/59-78 94-100 Results - Labs CBC & BMP: 09/22/16 16:26 09/20/16 00:18
[2016-09-22] MEDS ORDERED: SODIUM CHLORIDE 0.9% 250 ML IV PRN (09:45)
--- NOTE | 2016-09-22 10:42 | Discharge Summary ---
Hospital Course - Hospital Course Hospital Course: 76-year-old male with a history of hypertension, diabetes and coronary disease who is currently taking Plavix for his stent that was placed over 7 years ago. Patient developed diffuse abdominal pain that is worsening over the last week with black tarry stools. His hemoglobin on admission was 8.5. Patient dropped low of 7.6 and received 1 unit of packed red blood cells today. EGD by Dr. Marroquin yesterday showed a duodenal ulcer with no active bleeding. We will discharge him on Nexium 40 mg twice a day. Patient also was noted to have angiodysplasia it is really not safe to go back on Plavix ever. Patient will have a colonoscopy once the Plavix is out of his system for 5 days. We will plan to do the colonoscopy on Wednesday. Patient is insisted on going home today after he receives his 1 unit of packed red blood cells. Patient's blood pressure and blood sugars are stable. He was on lisinopril and Norvasc for blood pressure of only restarted the Norvasc at this time. Would like him to follow-up with his regular doctor and reevaluate his blood pressure at that time. Patient needs to stick to a full liquid or soft diet. Eating too soon too much we will does irritate the duodenal ulcer. - Time spent with patient Time with patient DS: Greater than 30 minutes (40 min) Diagnosis - Discharge Diagnosis (1) UGI bleed Status: Acute (2) Acute blood loss anemia Status: Acute (3) Hypertension Status: Acute (4) Diabetes Status: Chronic (5) UTI (urinary tract infection) Status: Acute (6) Chronic renal failure, stage 3 (moderate) Status: Acute Discharge Plan - Discharge Data Disposition: Disch To Home/Self Care Condition at Discharge: Stable Discharge Diet: other (full liquids advance to soft diabetic diet. ) Activity: resume usual activities as tolerated Hygiene: no restrictions Weight Bearing at Discharge: full weight bearing - Discharge Medications Continue Amlodipine Besylate 10 mg PO QAM glipiZIDE [Glipizide ER] 2.5 mg PO DAILY W/BREAKFAST Hyoscyamine Sulfate 0.125 mg PO Q4H PRN PRN Reason: STOMACH PAINS Loperamide HCl [Loperamide] 2 mg PO Q6H PRN PRN Reason: Diarrhea Allopurinol 100 mg PO QAM PRN PRN Reason: Gout Linagliptin [Tradjenta] 5 mg PO QAM Changed Esomeprazole Magnesium [Nexium] 40 mg PO BID #120 tablet Discontinued Clopidogrel Bisulfate [Clopidogrel] 75 mg PO QAM Lisinopril 20 mg PO QAM - Follow Up or Referral Follow Up: Dickson Marroquin MD [Physician] - (wednesday for colonoscopy as outpatient cbc) PMDr Aleksandra [Other] - 1 Week - Forms/Instructions Additional Discharge Instructions: set up outpatient colonoscopy for Wednesday. No plavix or asa until okay with Dr. Marroquin. Discharge when seen by Dr. Marroquin and after blood transfusion Exam - Constitutional Vitals: Period Temp Pulse Resp BP Sys/Short Pulse Ox Last 24 Hr 97.6 F-99.4 F 65-83 12-20 123-169/59-81 93-99 General appearance: normal weight, no acute distress - Respiratory Respiratory exam: Present: clear to auscultation bilaterally. Absent: rhonchi, wheezes - Cardiovascular Cardiovascular exam: Present: regular rate and rhythm. Absent: systolic murmur - GI/Abdominal GI/Abdominal exam: Present: normal bowel sounds, soft. Absent: tenderness - Extremities Exam Extremities exam: Present: normal inspection, normal capillary refill Discharge Results Procedures and tests throughout hospitalization: Pending Orders 09/19/16 09:50 Occult Blood, Stool Stat 09/22/16 05:08 Red Blood Cells Leuko Red Stat Type and Screen Stat Labs on day of discharge: Labs from last 24 hours 09/22/16 09/22/16 09/21/16 05:13 05:08 20:26 Hgb 7.6 L POC Glucose 189 H Blood Type O POSITIVE Antibody Screen Negative Crossmatch See Detail 09/21/16 09/21/16 09/21/16 17:40 17:04 12:11 Hgb POC Glucose 155 H 144 H 129 H Blood Type Antibody Screen Crossmatch DS: Provider Date of admission: 09/18/16 13:58 Primary care physician: . No PCP Attending physician on admission: Jose Friend Jr., MD Consults: 09/18/16 16:09 Consult to Physician [CONS] Routine Comment: Consulting Provider: Henry Kenny V Consult Notification Comment: note left with gi list on 09/18/16 at 1700 Discharging clinician: Andie Gamez MD
[2016-09-22 17:16] VITALS: BP 131/59
[2016-09-22 17:17] LABS: Hematocrit 28.6 VOL% (42.0-52.0); Hemoglobin 8.8 GM/DL (14.0-18.0)
== END 2016-09-22 17:19 | disposition home health service (06) | DRG 378 ==
LOC: N.ED 12:19 → N.EDINP 13:58 → SUATTDRO 13:58 → N.EDINP 16:08 → N.5E 16:09
PROVIDERS: ADMIT Internal Medicine Nephrology; ATTEND Internal Medicine

== ENCOUNTER 2016-11-10 06:31 | Inpatient (IN) ==
[2016-11-10] MEDS ORDERED: PANTOPRAZOLE 40 MG VIAL IV STA (07:35)
[2016-11-10] MEDS ORDERED: ONDANSETRON 4 MG/2 ML VIAL IV PRN ×2 (07:35→14:36)
--- NOTE | 2016-11-10 07:40 | Emergency Department Note ---
Jasmin Nunez Rolonda, am scribing for, and in the presence of, Abhijit Pham MD 07: 35. Vero Nunez James D, MD, personally performed the services described in this documentation, ascribed by Ashley Castellanos in my presence, and it is both accurate and complete [id number] . Arrival - Arrival Chief Complaint: Abdominal / Flank Pain Stated Complaint: stomach problems ED Nursing Triage Note: complaining on abdominal pain that started around 0000. states hurts around his "belly button". patient reports has been a chronic issue with his abdominal pain and cannot figure out what is causing his pain. reports last bm was yesterday. dr marroquin is GI doctor. Mode of Arrival: Ambulatory Limitations: No Limitations Source: Patient, Old Records Reviewed, RN Notes Reviewed - History of Present Illness HPI Narrative: Pt is a 76 y/o male who presents to the ED with c/o sharp mid abdomen pain with an onset of this morning. Pt has a PMHx of GI problems and Kidney stones. Pt was seen in ED on 09/18/2016 for evaluation of GI bleed. He denies EtOH usage, dysuria and hematemesis but confirms vomiting and that last BM was x1 day ago and that it was "black". Pt is f/u by Dr. Marroquin. No other complaint/pain in ED. Patient recently underwent colonoscopy with polypectomy. Patient was felt to have GI bleeding probably due to angiodysplasia. Onset (ago): hour(s) Consistency: constant Severity: moderate Severity scale (1-10): 3 Allergies/Adverse Reactions: Allergies Allergy/AdvReac Type Severity Reaction Status Date / Time codeine Allergy Agitated Verified 11/10/16 06:45 Home Medications: Home Medications Medication Instructions Recorded Confirmed Type Amlodipine Besylate 10 mg PO DAILY 09/18/16 11/10/16 History Hyoscyamine Sulfate 0.125 mg PO Q4H PRN 09/18/16 11/10/16 History Linagliptin [Tradjenta] 5 mg PO DAILY 09/18/16 11/10/16 History Loperamide HCl [Loperamide] 2 mg PO Q6H PRN 09/18/16 11/10/16 History glipiZIDE [Glipizide ER] 2.5 mg PO DAILY 09/18/16 11/10/16 History Esomeprazole Magnesium 40 mg PO BID 11/10/16 11/10/16 History [Esomeprazole] Review of System - Review of System 12 point system: reviewed and no additional remarkable complaints except as stated - Review of System Constitutional: Absent: chills, fever Eyes: Absent: pain, redness Head/Ears/Nose/Throat: Absent: earache, epistaxis Respiratory: Absent: cough, respiratory distress Cardiovascular: Absent: chest pain, dyspnea on exertion Gastrointestinal: Present: abdominal pain, melena. Absent: constipation Genitourinary male: Absent: urgency, frequency Musculoskeletal: Absent: arm pain, leg pain, neck pain Skin: Absent: rash Neurological: Absent: headache Psychiatric: Absent: anxiety Endocrine: Absent: cold intolerance Medical,Surgical,& Family Hx - Medical History Cardio: History of: Hypertension Psychological: No history of: Anxiety Disorders, ADHD, Behavior Problems, Bipolar Disorder, Depression, Previous Suicide Attempt, Psychiatric/Substance Abuse Tx, Schizophrenia, Violent Behavior, Psychiatric Problems Neurology: No history of: Seizures Endocrine: History of: Diabetes Mellitus (NIDDM) Renal: No history of: Renal Problems Genitourinary: History of: Kidney Stones No history of: Bladder Problem Gastrointestinal: History of: GERD, GI Problems Hematology: History of: Anemia - Surgical History Cardiac Surgeries: Sugical HX of: Cardiac Catheterization (STENTS) HEENT Surgeries: Surgical HX of: Eye Surgery (cataract) Patient denies: Tonsilectomy & Adenoidectomy Abdominal Surgeries: Surgical HX of: EGD Patient denies: Appendectomy, Cholecystectomy Orthopedic Surgeries: Patient denies;: Orthopedic Surgery - Social History Smoking Status: Current every day smoker Frequency of Alcohol Use: None Type of Drug Use: None Exam Vital Signs: Vital Signs Temperature 97.1 F L 11/10/16 07:20 Pulse Rate 90 11/10/16 07:20 Respiratory Rate 18 11/10/16 07:20 Blood Pressure 138/72 11/10/16 07:20 O2 Sat by Pulse Oximetry 98 11/10/16 06:35 GENERAL: This is a well-nourished well-developed white male in no apparent distress. VITAL SIGNS: Reviewed HEENT: Head is atraumatic and normocephalic. Pupils are equal round react to light. Extraocular movements are intact. Oropharynx is benign with moist mucous membranes. NECK: Neck is soft and supple without tenderness. There are no masses. There is no lymphadenopathy. LUNGS: Lungs are clear to auscultation. Chest rises symmetrically. There is no chest wall tenderness. CV: Heart is regular rate and rhythm without murmurs rubs or gallops. ABDOMEN: Abdomen is soft, bilateral lower quadrant abdominal tenderness to palpation without rebound or guarding. There are no abdominal abnormal masses palpated. There is no organomegaly. Bowel sounds are hyperactive. Rectal: Heme-negative stool. SKIN: Skin is warm and dry. No rash. EXTREMITIES: Patient has full range of motion without tenderness. There is no pedal edema. NEUROLOGIC: Awake alert and oriented 4. Cranial nerves II through XII are grossly intact. Motor is 5 over 5 in all extremities bilaterally. Course - Consultations Consultation #1: Discussed with hospitalist. Patient will be admitted to their service. Time: 12:37 Results - Labs CBC & BMP: 11/10/16 08:00 11/10/16 08:00 Lab Results: I have reviewed the patients labs - Diagnostic Findings Procedure: Abdominal x-ray: image reviewed by me (Dilated loops of small bowel, no free air. Gas is present in the rectum.), Chest x-ray: image reviewed by me (No infiltrates, no pleural effusions.), CT - chest: image reviewed by me (Oral contrast extends into the large bowel. The patient has diverticulosis. There is ascites present.) Disposition Clinical Impression: Abdominal pain, Anemia, Ascites, Possible portal vein thrombosis, Elevated LFTs Case discussed with: patient, patient's family Condition: Stable Time of Disposition: 12:25
[2016-11-10] MEDS ORDERED: LIDOCAINE 1%/EPI INJ 20 ML VIAL ONE (07:56)
--- NOTE | 2016-11-10 07:58 | XRay Report ---
XR chest 1V portable Indication: Abdominal pain Comparison: None available Findings: The heart and mediastinum are normal in size and configuration. The pulmonary vascularity is normal in caliber. Small nodule is present in the right upper lung 5 mm in size. No lung infiltrates, effusions, pneumothorax or other abnormality is demonstrated. Impression: No acute findings. Small right upper lobe nodule, may represent granuloma. Recommend obtaining prior studies for comparison. If no prior studies available 4 month follow-up is recommended. PROCEDURE INTERPRETED AT [facility] DEPARTMENT OF RADIOLOGY Final Report Signed by: Dr. Marco Antonio Roberts
[2016-11-10] MEDS ORDERED: PANTOPRAZOLE 40 MG VIAL IV ONE (08:00)
--- NOTE | 2016-11-10 08:00 | XRay Report ---
XR abdomen 2V Indication: Abdominal pain Comparison: None available Findings: No free fluid or free air seen. The bowel gas pattern appears within normal limits. No abnormal calcifications are present. No other abnormality is identified. Impression: No evidence of abnormality demonstrated PROCEDURE INTERPRETED AT [facility] DEPARTMENT OF RADIOLOGY Final Report Signed by: Dr. Marco Antonio Roberts
[2016-11-10 08:38] LABS: Basophils % 0.6 % (0.0-0.8); Eosinophils # 0.1 10*3/uL (0.0-0.87); Eosinophils % 1.7 % (0.00-10.9); Hematocrit 27.6 VOL% (42.0-52.0); Hemoglobin 9.2 GM/DL (14.0-18.0); Immature Granulocytes % 0.4 %; Immature Granulocytes Absolute 0.03 #; Lymphocytes # 1.5 10*3/uL (1.4-4.0); Lymphocytes % 22.2 % (21.2-54.2); Mean Corpuscular HGB Conc 33.3 GM/DL (32-36); Mean Corpuscular Hemoglobin 26 PG (27-34); Mean Corpuscular Volume 77.3 FL (87-102); Monocytes # 0.5 10*3/uL (0.11-0.8); Monocytes % 7.1 % (1.7-12.7); Neutrophils # 4.7 10*3/uL (1.4-7.4); Platelet Count 208 T/CUMM (130-400); Red Blood Count 3.57 MC/CUMM (3.8-5.5); Red Cell Distribution Width 26.7 % (9.3-17.3)
[2016-11-10 08:58] LABS: Anisocytosis 1+; Hypochromasia 1+; Target Cells Slight
[2016-11-10 08:59] LABS: Platelet Estimate Normal
[2016-11-10 09:00] LABS: Microcytosis 2+
[2016-11-10 09:05] LABS: Albumin 2.8 G/DL (3.4-5.0); Calcium 8.9 MG/DL (8.5-10.1); Lactic Acid 0.8 MMOL/L (0.4-2.0); Potassium 4.5 MMOL/L (3.5-5.1); Total Protein 6.6 G/DL (6.4-8.3)
--- NOTE | 2016-11-10 11:48 | CT Report ---
CT abdomen pelvis Indication: Abdominal pain, bilateral lower quadrants Comparison: None available Technique: Axial CT imaging of the abdomen and pelvis is performed with intravenous and oral contrast. Contrast dose is 100 cc of Omnipaque 350. Findings: Cardiac and lung bases are within normal limits CT abdomen: The liver is small with nodular contour and there areas of ill-defined decreased density within the liver. There is moderate ascites present. There is suggestion of partial thrombus in the portal vein with collateral vessels seen around the gallbladder. Spleen has calcified granulomas. Pancreas and adrenal glands are normal in size and enhancement. No evidence of focal lesion is demonstrated in these solid organs. There is right renal atrophy with normal enhancement. Left kidney is normal size and enhancement. No evidence of hydronephrosis or nephrolithiasis is seen. Multiple diverticula are present around the colon without evidence of acute diverticulitis. Remaining pelvic bowel caliber is normal and no wall thickening or adjacent inflammatory change is seen. No evidence of free fluid or free air is present. CT pelvis: The pelvic bowel appears within normal limits. Bladder shows no evidence of abnormality. 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 Moderate ascites. Enhancement of collaterals in the gallbladder. This CT exam was performed using one or more the following dose reduction techniques: Automated exposure control, adjustment of the MA and/or KV according to patient size, or use of iterative reconstruction technique. PROCEDURE INTERPRETED AT [facility] DEPARTMENT OF RADIOLOGY Final Report Signed by: Dr. Marco Antonio Roberts
[2016-11-10 11:58] LABS: Apearance,Urine CLEAR (Clear); Bilirubin,Urine Negative (Negative); Blood, Urine Negative (Negative); Glucose,Urine (UA) Negative (Negative); Ketones,Urine Negative (Negative); Nitrite,Urine Positive (Negative); Protein,Urine Negative; Urine Color Yellow (Yellow); Urine Specific Gravity 1.012 (1.001-1.035); Urine Urobilinogen < 2.0 EU/DL (0.2-1.0); WBC,Urine 3 /HPF (0-6)
--- NOTE | 2016-11-10 14:18 | Hospitalist History & Physical ---
Assessment and Plan (1) Abdominal pain Status: Acute Assessment and plan: The patient reports the abdominal pain is chronic in nature. The patient also reports that he has had multiple GI bleeds in the past and is generally followed by Dr. Dickson Marroquin. The patient recently underwent colonoscopy and polypectomy on the previous clinical encounter. The patient was told that the the GI bleed was thought to be a result of angiodysplasia. CT abdomen and pelvis suggested hepatic cirrhosis with suggestion of at least partial thrombosis of the portal vein, moderate ascites and enhancement of the collaterals in the gallbladder. We will keep the patient n.p.o., start PPIs, gently rehydrate, and consult gastroenterology to evaluate and assist during the clinical encounter. Current Visit: Yes (2) Anemia Status: Acute Assessment and plan: Hemoglobin& hematocrit are noted at 9.2/27.6. Upon review of the patient's medical record, during the last clinical encounter in September 2015 at the time of discharge the patient's hemoglobin and hematocrit was noted at 8.8 and 28.6. We will type and screen. We will recheck CBC in a.m. The patient may eventually require transfusion of blood products. Current Visit: Yes (3) Elevated LFTs Status: Acute Assessment and plan: The patient's liver function was grossly impaired at the time of ED presentation. AST was noted at 185, ALT was noted at 132, alkaline phosphatase was noted at 6.16 however the patient's total bilirubin was noted at 1.00. We will obtain an ultrasound of the liver. A GI consultation has been requested. We will check an ammonia level and recheck liver function in a.m. Current Visit: Yes (4) Chronic renal failure, stage 3 (moderate) Status: Acute Assessment and plan: BUN and creatinine was noted at 22 and 1.80 at the time of admission. Upon review of the patient's encounter, BUN was noted at 12 and 1.50. This is a slight change since the previous clinical encounter which was in September,. We will monitor the patient's renal function closely during the clinical encounter. Will recheck labs in a.m. Current Visit: No History of Present Illness History of present illness: This is a very pleasant 76-year-old male that presented to the ED at [facility] this morning for the evaluation of abdominal pain. Patient has a medical history significant for hypertension, non-insulin- dependent diabetes mellitus, GERD, renal calculi, and chronic diarrhea. Patient has surgical history significant for cardiac catheterization with stent placements, cataract removal, EGD, and colonoscopy. The patient reported the onset of symptoms at midnight on last night. He reported that the pain has been a chronic issue and is mostly isolated to the umbilical area. He reported his last bowel movement was on yesterday; in which she described it as "black". The patient is generally followed in the outpatient setting by Dr. Dickson Marroquin. He reports that he has recently undergone a colonoscopy under the direction of Dr. Marroquin with polypectomy. He was told by Dr. Marroquin that his GI bleeding was likely secondary to angiodysplasia. The patient denied any current alcohol use however, reports daily tobacco use. The abdominal pain became very severe prompting the patient to present to the ED for further evaluation. The patient was seen and assessed at the time of ED presentation. Labs were obtained; complete blood count reported white blood cell count is 7.0, hemoglobin 9.2, hematocrit 27.6, and platelet count at 208. Comprehensive metabolic profile reported sodium at 136, potassium 4.5, chloride 102, carbon dioxide 27, BUN 22, creatinine 1.80, glucose 130, lactic acid 0.8, calcium 8.9, total bilirubin 1.00, AST 185, ALT 132, alkaline phosphatase 616, total protein 6.6, and albumin 2.8. Urinalysis was positive for nitrates and urobilinogen greater than 2.0. Abdominal x-ray reported no evidence of acute abnormality. Chest x-ray reported a small right upper lobe nodule possibly field sales representative of granuloma. CT abdomen pelvis reported hepatic cirrhosis with suggestion of at least partial thrombosis of the portal vein, moderate ascites, enhancement of collaterals in the gallbladder. After brief discussion with both Dr. Pino and Dr. Gillette, the patient will be admitted to the hospitalist service for continuation of care. We will consult Dr. Dickson Marroquin tariff expert to evaluate and assist during the clinical encounter patient is known to him. Home medications have been reviewed and reconciled. CODE STATUS discussed; patient is a FULL CODE. Home Medications Medication Instructions Recorded Confirmed Type Amlodipine Besylate 10 mg PO DAILY 09/18/16 11/10/16 History Hyoscyamine Sulfate 0.125 mg PO Q4H PRN 09/18/16 11/10/16 History Linagliptin [Tradjenta] 5 mg PO DAILY 09/18/16 11/10/16 History Loperamide HCl [Loperamide] 2 mg PO Q6H PRN 09/18/16 11/10/16 History glipiZIDE [Glipizide ER] 2.5 mg PO DAILY 09/18/16 11/10/16 History Esomeprazole Magnesium 40 mg PO BID 11/10/16 11/10/16 History [Esomeprazole] Allergies Allergy/AdvReac Type Severity Reaction Status Date / Time codeine Allergy Agitated Verified 11/10/16 06:45 Medical,Surgical,& Family Hx - Medical History Cardio: History of: Hypertension Psychological: No history of: Anxiety Disorders, ADHD, Behavior Problems, Bipolar Disorder, Depression, Previous Suicide Attempt, Psychiatric/Substance Abuse Tx, Schizophrenia, Violent Behavior, Psychiatric Problems Neurology: No history of: Seizures Endocrine: History of: Diabetes Mellitus (NIDDM) Renal: No history of: Renal Problems Genitourinary: History of: Kidney Stones No history of: Bladder Problem Gastrointestinal: History of: GERD, GI Problems Hematology: History of: Anemia - Surgical History Cardiac Surgeries: Sugical HX of: Cardiac Catheterization (STENTS) HEENT Surgeries: Surgical HX of: Eye Surgery (cataract) Patient denies: Tonsilectomy & Adenoidectomy Abdominal Surgeries: Surgical HX of: EGD Patient denies: Appendectomy, Cholecystectomy Orthopedic Surgeries: Patient denies;: Orthopedic Surgery - Social History Smoking Status: Current every day smoker Have you smoked in the last 12 months: Yes Time spent discussing smoking cessation with patient: more than 10 minutes Frequency of Alcohol Use: None Type of Drug Use: None Marital Status: Single Lives With:: Alone Functional capacity: independent ambulation 12 point system: reviewed and no additional remarkable complaints except as stated Exam - Constitutional Vitals: Period Temp Pulse Resp BP Sys/Short Pulse Ox Last 24 Hr 97.1 F-97.1 F 90-90 18-18 138-138/72-72 98 General appearance: normal weight, no acute distress - Head Head exam: Present: normal inspection, normocephalic - Eye Eye exam: Present: EOMI. Absent: conjunctival injection Pupils: Present: RAMIRO, normal accommodation - ENT ENT exam: Present: normal exam, normal external ear exam, normal oropharynx - Neck Neck exam: Present: normal inspection. Absent: lymphadenopathy, meningismus, thyromegaly - Respiratory Respiratory exam: Present: clear to auscultation bilaterally. Absent: rales, rhonchi, stridor, wheezes - GI/Abdominal GI/Abdominal exam: Present: normal bowel sounds, distended (Mild abdominal distention), tenderness (Umbilical tenderness upon gentle palpation) - Extremities Exam Extremities exam: Present: normal inspection, normal capillary refill, full ROM. Absent: edema - Back Exam Back exam: Present: normal inspection - Neurological Exam Neurological exam: Present: alert, oriented X3, CN II-XII intact - Psychiatric Psychiatric exam: Present: normal affect, normal mood - Skin Skin exam: Present: normal color, warm, dry Results - Labs CBC & BMP: 11/10/16 08:00 11/10/16 08:00 Lab Results: I have reviewed the past 24 hour labs
[2016-11-10] MEDS ORDERED: LOPERAMIDE 2 MG CAPSULE PO PRN (15:07)
--- NOTE | 2016-11-10 15:07 | Gastrointestinal Consult Note ---
<KalpeshGlenny Aleksandra - Last Filed: 11/10/16 14:48> Assessment and Plan (1) Abdominal pain Status: Acute Assessment and plan: 11/10-3 month history of epigastric/RUQ abdominal pain with associated episodes of nausea and vomiting, not precipitated by any known factors. Also findings on CT of of hepatic cirrhosis with suggestion of at least partial thrombosus to portal vein, moderate ascites. Elevated LFTs noted as below. Recent endoscopy noted as below. Liver US is pending at this time. Plan and addendum to follow by Dr Marroquin. Current Visit: Yes History of Present Illness Chief complaint: Abdominal pain, nausea and vomiting, dark stools History of present illness: Mr. Harrell is a 76 year old male who was admitted to the hospital with complaints of abdominal pain, nausea and vomiting x 3 months, and dark stools. Pt son is at bedside and assists in history taking. Chart review was also done. He has a prior history of DM (reported controlled), HTN, stage 3 CRF, CAD, and anemia. Pt states that he has had almost daily episodes of nausea and vomiting x 3 months. He states that there doesnt seem to be any precipitating factors associated with this and occur randomly. He does however state that he has some epigastric/RUQ abdominal pain that does seem to be precipitated by meals at times. He denies any hemetemesis or coffee ground emesis with this. He states that he has had a mild loss of appetite but has lost 30 pounds more so due to not wanting to eat due to the nausea and vomiting. He has a history of PUD in the past and states this does feel similar to this. He also reports some dark stools recently but denies any hematochezia. He denies taking any iron supplements or Pepto Bismol. Pt lives alone however called his son this morning due to he was increasingly weak and was brought to the ER for further evaluation. On admission, pt had a CT of abdomen with contrast done which showed hepatic cirrhosis with suggestion of at least partial thrombus of portal vein and moderate ascites. He has no history of alcohol use in the past. Pt was also noted on admission to have elevated transaminases with AST 185, ALT 132, alk phos 616. Lipase 286. UA C&S pending. H&H 01/13, which was baseline upon discharge in September. He was seen last as inpatient in September for abdominal pain and anemia with suspected GI bleed. He underwent EGD at that time with duodenal ulcers with no active bleeding (on Plavix at that time) and AVMs. He also had a colonoscopy done at that time with findings of colon polyps (hyperplastic polyp ) and diverticulosis. Home Medications Medication Instructions Recorded Confirmed Type Amlodipine Besylate 10 mg PO DAILY 09/18/16 11/10/16 History Hyoscyamine Sulfate 0.125 mg PO Q4H PRN 09/18/16 11/10/16 History Linagliptin [Tradjenta] 5 mg PO DAILY 09/18/16 11/10/16 History Loperamide HCl [Loperamide] 2 mg PO Q6H PRN 09/18/16 11/10/16 History glipiZIDE [Glipizide ER] 2.5 mg PO DAILY 09/18/16 11/10/16 History Esomeprazole Magnesium 40 mg PO BID 11/10/16 11/10/16 History [Esomeprazole] Allergies Allergy/AdvReac Type Severity Reaction Status Date / Time codeine Allergy Agitated Verified 11/10/16 06:45 Medical,Surgical,& Family Hx - Medical History Cardio: History of: Hypertension Psychological: No history of: Anxiety Disorders, ADHD, Behavior Problems, Bipolar Disorder, Depression, Previous Suicide Attempt, Psychiatric/Substance Abuse Tx, Schizophrenia, Violent Behavior, Psychiatric Problems Neurology: No history of: Seizures Endocrine: History of: Diabetes Mellitus (NIDDM) Renal: No history of: Renal Problems Genitourinary: History of: Kidney Stones No history of: Bladder Problem Gastrointestinal: History of: GERD, GI Problems Hematology: History of: Anemia - Surgical History Cardiac Surgeries: Sugical HX of: Cardiac Catheterization (STENTS) HEENT Surgeries: Surgical HX of: Eye Surgery (cataract) Patient denies: Tonsilectomy & Adenoidectomy Abdominal Surgeries: Surgical HX of: EGD Patient denies: Appendectomy, Cholecystectomy Orthopedic Surgeries: Patient denies;: Orthopedic Surgery - Social History Smoking Status: Current every day smoker Frequency of Alcohol Use: None Type of Drug Use: None 12 point system: reviewed and no additional remarkable complaints except as stated - Constitutional Constitutional: Present: as per HPI - EENT Eyes: Present: as per HPI Ears: Present: as per HPI Nose, mouth and throat: Present: as per HPI - Cardiovascular Cardiovascular: Present: as per HPI - Respiratory Respiratory: Present: as per HPI - Gastrointestinal Gastrointestinal: Present: as per HPI, abdominal pain (RUQ, epigastric), nausea , vomiting - Genitourinary Genitourinary: Present: as per HPI - Musculoskeletal Musculoskeletal: Present: as per HPI - Neurological Neurological: Present: as per HPI - Psychiatric Psychiatric: Present: as per HPI - Endocrine Endocrine: Present: as per HPI - Hematologic/Lymphatic Hematologic/Lymphatic: Present: as per HPI Exam - Constitutional Vitals: Period Temp Pulse Resp BP Sys/Short Pulse Ox Last 24 Hr 97.1 F-97.1 F 74-90 18-19 138-158/72-74 97-98 General appearance: normal weight, no acute distress - Head Head exam: Present: normal inspection, normocephalic - Eye Eye exam: Present: other (lids and conjunctiva unremarkable). Absent: scleral icterus - ENT ENT exam: Present: normal exam, normal oropharynx - Neck Neck exam: Present: normal inspection - Respiratory Respiratory exam: Present: clear to auscultation bilaterally. Absent: rales, rhonchi, wheezes - Cardiovascular Cardiovascular exam: Present: regular rate and rhythm. Absent: diastolic murmur , JVD, systolic murmur - GI/Abdominal GI/Abdominal exam: Present: normal bowel sounds, soft. Absent: ascites, distended, mass, organomegaly, tenderness - Extremities Exam Extremities exam: Present: normal inspection, full ROM - Back Exam Back exam: Present: normal inspection - Neurological Exam Neurological exam: Present: alert, oriented X3 - Psychiatric Psychiatric exam: Present: normal affect, normal mood - Skin Skin exam: Present: normal color, warm, dry Results - Labs CBC & BMP: 11/10/16 08:00 11/10/16 08:00 Lab Results: I have reviewed the past 24 hour labs - Diagnostic Findings Procedure: CT Abdomen and Pelvis: report reviewed by me <Dickson Marroquin - Last Filed: 11/10/16 18:10> History of Present Illness History of present illness: Mr. Harrell is a 76 year old male Exam - Constitutional Vitals: Period Temp Pulse Resp BP Sys/Short Pulse Ox Last 24 Hr 97.1 F-97.1 F 74-94 17-86 138-171/70-97 96-100 Results - Labs CBC & BMP: 11/10/16 08:00 11/10/16 08:00
[2016-11-10] MEDS ORDERED: HYOSCYAMINE 0.125 MG TABLET PO PRN (15:30)
--- NOTE | 2016-11-10 17:31 | Ultrasound Report ---
Exam: US liver Date: 11/10/2016 2:37 PM Comparison: CT 11/10/2016 Indication: Elevated liver enzymes Technique:[Multiple transabdominal real-time scans were obtained. Color flow scans were obtained. Ultrasound images were captured and stored.] Findings: No gallstones are identified. The wall of the gallbladder measures 4 mm. CBD measures 6 mm. Inhomogeneous echogenicity in the liver with which has an irregular contour. No color flow identified in the portal vein consistent with thrombosis. Color-flow documented and hepatic veins. Persistent evidence of moderate ascites. Right kidney measures 91 mm in length with no mass or hydronephrosis. Cortical scarring in the kidney. The pancreas, aorta including the aortic bifurcation, and IVC are obscured by bowel gas. Impression: The liver has an irregular contour which and inhomogeneous echogenicity which can be seen with hepatocellular disease such as cirrhosis. No obvious liver masses identified. CBD is at the upper limits normal in size measuring 6 mm with nonspecific minimal thickening of the wall the gallbladder. No gallstones are identified. Findings consistent with portal vein thrombosis with adjacent collateral vessels which may account for some of the findings in the gallbladder wall. Cortical scarring in the right kidney. PROCEDURE INTERPRETED AT [facility] DEPARTMENT OF RADIOLOGY Final Report Signed by: Dr. Trish Guzman
[2016-11-10 17:38] LABS: Hepatitis A Ab IgM Quant 0.14 Index; Hepatitis A Ab IgM Result Negative (Negative); Hepatitis B Core IgM Quant < 0.05 Index; Hepatitis B Core IgM Result Negative (Negative); Hepatitis B Surface Ag Quant 0.59 Index; Hepatitis B Surface Ag Result Negative (Negative); Hepatitis C Virus Ab Quant 0.09 Index; Hepatitis C Virus Ab Result Negative (Negative)
[2016-11-10] MEDS: ENOXAPARIN 80 MG/0.8 ML SYRINGE SUBCUT SCH (17:45)
[2016-11-10] MEDS ORDERED: NON-FORMULARY MEDICATION (Esomeprazole Magnesium [Esomeprazole] 40 MG) PO SCH (21:00)
[2016-11-11 05:16] LABS: Basophils % 0.6 % (0.0-0.8); Eosinophils # 0.2 10*3/uL (0.0-0.87); Eosinophils % 3.4 % (0.00-10.9); Hematocrit 27.1 VOL% (42.0-52.0); Hemoglobin 8.9 GM/DL (14.0-18.0); Immature Granulocytes % 0.3 %; Immature Granulocytes Absolute 0.02 #; Lymphocytes # 1.8 10*3/uL (1.4-4.0); Lymphocytes % 27.7 % (21.2-54.2); Mean Corpuscular HGB Conc 32.8 GM/DL (32-36); Mean Corpuscular Hemoglobin 25 PG (27-34); Mean Corpuscular Volume 76.8 FL (87-102); Monocytes # 0.7 10*3/uL (0.11-0.8); Monocytes % 10.1 % (1.7-12.7); Neutrophils # 3.7 10*3/uL (1.4-7.4); Neutrophils % 57.9 % (38.7-73.9); Platelet Count 194 T/CUMM (130-400); Red Blood Count 3.53 MC/CUMM (3.8-5.5); Red Cell Distribution Width 26.9 % (9.3-17.3); White Blood Count 6.4 T/CUMM (4-12)
[2016-11-11 05:26] LABS: INR 1.1; PT Patient Result 11.5 SECS
[2016-11-11 05:33] LABS: Hypochromasia 1+
[2016-11-11 05:34] LABS: Microcytosis 2+; Spherocytes Slight; Target Cells Few
[2016-11-11 05:35] LABS: Ovalocytes Slight; Platelet Estimate Adequate
[2016-11-11 05:56] LABS: Albumin 2.6 G/DL (3.4-5.0); Bilirubin,Total 1.2 MG/DL (0.2-1.0); Calcium 8.6 MG/DL (8.5-10.1); Potassium 4.2 MMOL/L (3.5-5.1); Total Protein 6.2 G/DL (6.4-8.3)
--- NOTE | 2016-11-11 11:03 | History and Physical Update ---
History and Physical Update - Physical Exam Mental Status: alert and oriented Heart: regular rate and rhythm Lung: clear to auscultation Abdomen: within normal limits Vitals: within normal limits
--- NOTE | 2016-11-11 11:13 | Operative Note ---
Date of procedure: 11/11/16 Pre-op diagnosis: Recurrent nausea and vomiting with history of peptic ulcer disease Procedure: EGD 76-year-old gentleman with prior history of peptic ulcer disease now with recurrent nausea and vomiting CT scan is also suggested chronic portal vein thrombosis and possibility of portal hypertension changes will need to be evaluated. Informed consent was obtained the patient He was sedated with MAC anesthesia per anesthesia protocol. Patient taste placed in left lateral decubitus position the Olympus flexible video upper endoscope was inserted oral cavity under direct vision the esophagus intubated. Findings: Esophagus-normal proximal mid esophageal mucosa distal esophagus with trivial esophageal varices no evidence of bleeding. Stomach-normal insufflation normal folds no gastric varices identified. Changes of portal hypertensive gastropathy are appreciated. Pylorus-normal Duodenum-normal the bulb duodenum to the third portion the duodenum no further ulceration was observed. No obvious ampullary abnormalities were identified. The procedure terminated placed our procedure well Postop diagnosis: 1. Changes of portal hypertension without evidence of active bleeding 2. No clear source of nausea and vomiting identified 3. Proceed with MRI with MRCP protocol to further evaluate for underlying lesions resulting in his portal vein thrombosis. Tumor markers and further workup of abnormal liver tests have been requested. Anesthesia: MAC Surgeon / Physician: Dickson Marroquni Estimated blood loss: none Specimens: none sent Condition: stable Disposition: post procedure unit Results - Labs CBC & BMP: 11/11/16 04:50 11/11/16 04:50 Discharge Plan - Discharge Medications No Action Amlodipine Besylate 10 mg PO DAILY glipiZIDE [Glipizide ER] 2.5 mg PO DAILY Hyoscyamine Sulfate 0.125 mg PO Q4H PRN PRN Reason: STOMACH PAINS Loperamide HCl [Loperamide] 2 mg PO Q6H PRN PRN Reason: Diarrhea Esomeprazole Magnesium [Esomeprazole] 40 mg PO BID Linagliptin [Tradjenta] 5 mg PO DAILY - Follow Up or Referral - Forms/Instructions
--- NOTE | 2016-11-11 11:13 | Anesthesia Post-Op ---
Anesthesia Post OP - Post Ansesthetic Evaluation Patient seen in post op: Yes Resp: within normal limits CV: within normal limits Mental: within normal limits Temp: within normal limits [id number]: within normal limits Nausea and Vomiting: within normal limits Pain: within normal limits
[2016-11-11] MEDS: amLODIPine 10 MG TABLET PO SCH (12:11)
[2016-11-11] MEDS: sitaGLIPtin 25 MG TABLET PO SCH (12:11)
[2016-11-11] MEDS: PANTOPRAZOLE 40 MG VIAL IV SCH (12:12)
[2016-11-11 12:22] LABS: Cancer Antigen 19-9 7.1 U/ML (0-37)
--- NOTE | 2016-11-11 15:23 | Hospitalist Progress Note ---
Assessment and Plan (1) Portal vein thrombosis Status: Acute Assessment and plan: Patient was started on Lovenox yesterday 1 mg/kg. Subsequently the abdominal pain is resolved. Patient is doing need to do an ultrasound beside his CT scan on him. Being that he has cirrhosis is at least at risk for hepatocellular carcinoma. Because of the cirrhosis is unknown. Hepatitis panel is negative she denies overuse of alcohol. Alpha-fetoprotein is quite high at 2763. Current Visit: Yes (2) Abdominal pain Status: Acute Assessment and plan: Patient reports that the pain is resolved today. We will continue to follow on this issue Current Visit: Yes (3) Ascites Status: Acute Assessment and plan: This likely secondary to the portal vein thrombosis. This is symptomatic at this time. Current Visit: Yes Hospitalist: Subjective Interval history: Patient has been seen interviewed and examined and chart has been reviewed. This morning he had gone for an EGD. Findings revealed presence outcome with portal venous hypertension. There is no bleeding. The gentleman also has a portal vein thrombosis with the am giving Lovenox for. His symptoms of abdominal pain in the right upper quadrant discomfort of resolved today. Exam - Constitutional Vitals: Period Temp Pulse Resp BP Sys/Short Pulse Ox Last 24 Hr 97.0 F-97.9 F 73-86 16-20 122-155/59-069 93-99 General appearance: normal weight, no acute distress - Head Head exam: Present: normocephalic, atraumatic - Eye Eye exam: Present: EOMI, other (Anicteric) Pupils: Present: RAMIRO - ENT ENT exam: Present: normal oropharynx - Neck Neck exam: Present: normal inspection - Respiratory Respiratory exam: Present: clear to auscultation bilaterally - Cardiovascular Cardiovascular exam: Present: regular rate and rhythm - GI/Abdominal GI/Abdominal exam: Present: normal bowel sounds, soft - Extremities Exam Extremities exam: Present: full ROM - Neurological Exam Neurological exam: Present: alert, oriented X3, CN II-XII intact, other (Hard of hearing) - Psychiatric Psychiatric exam: Present: normal affect, normal mood - Skin Skin exam: Present: normal color, warm, dry Results - Labs CBC & BMP: 11/11/16 04:50 11/11/16 04:50 Lab Results: I have reviewed the past 24 hour labs
[2016-11-12] MEDS: PANTOPRAZOLE 40 MG VIAL IV SCH (08:44)
--- NOTE | 2016-11-12 09:37 | Gastrointestinal Progress Note ---
<KalpeshGlenny Aleksandra - Last Filed: 11/12/16 09:35> Assessment and Plan (1) Abdominal pain Status: Acute Assessment and plan: 11/12-EGD findings noted as below. Elevated AFP as below. MRI with MRCP protocol is pending for this morning. Will await these results later today. Plan an addendum to followed by Dr. Marroquin. 11/10-3 month history of epigastric/RUQ abdominal pain with associated episodes of nausea and vomiting, not precipitated by any known factors. Also findings on CT of of hepatic cirrhosis with suggestion of at least partial thrombosus to portal vein, moderate ascites. Elevated LFTs noted as below. Recent endoscopy noted as below. Liver US is pending at this time. Plan and addendum to follow by Dr Marroquin. Current Visit: Yes Gastroenterology - PN: Subj Interval history: CC: Nausea and vomiting Patient is seen, awake and alert, with family at bedside. States he had a restful night. Denies any pain, nausea, or vomiting. EGD on yesterday with findings noted for portal hypertension without active bleeding and no source of his nausea or vomiting found. He is for an MRI with MRCP protocol today. He had tumor markers drawn on yesterday and noted to have a significantly elevated AFP at 2763. His CA-19-9 9 was unremarkable. ALISON was negative. His other serology is pending at this time. Abdomen is soft, nontender. ROS: Denies shortness of breath or chest pain Exam (Progress Note) - Constitutional Vitals: Period Temp Pulse Resp BP Sys/Short Pulse Ox Last 24 Hr 97.3 F-98.2 F 73-88 16-20 111-153/57-069 92-98 General appearance: normal weight, no acute distress - Head Head exam: Present: normal inspection, normocephalic - Eye Eye exam: Present: other (Lids and conjunctivae are unremarkable). Absent: scleral icterus - ENT ENT exam: Present: normal exam, normal oropharynx - Neck Neck exam: Present: normal inspection - Respiratory Respiratory exam: Present: clear to auscultation bilaterally. Absent: rales, rhonchi, wheezes - Cardiovascular Cardiovascular exam: Present: regular rate and rhythm. Absent: diastolic murmur , JVD, systolic murmur - GI/Abdominal GI/Abdominal exam: Present: normal bowel sounds, soft. Absent: ascites, distended, mass, organomegaly, tenderness - Extremities Exam Extremities exam: Present: normal inspection, full ROM - Back Exam Back exam: Present: normal inspection - Neurological Exam Neurological exam: Present: alert, oriented X3 - Psychiatric Psychiatric exam: Present: normal affect, normal mood - Skin Skin exam: Present: normal color, warm, dry Results - Labs CBC & BMP: 11/11/16 04:50 11/11/16 04:50 Lab Results: I have reviewed the past 24 hour labs <Dickson Marroquin - Last Filed: 11/12/16 10:29> Exam (Progress Note) - Constitutional Vitals: Period Temp Pulse Resp BP Sys/Short Pulse Ox Last 24 Hr 97.3 F-98.2 F 73-88 16-20 111-153/57-069 92-98 Results - Labs CBC & BMP: 11/11/16 04:50 11/11/16 04:50
[2016-11-12] MEDS ORDERED: LIDOCAINE 1% 5 ML VIAL ONE (11:02)
[2016-11-12] MEDS ORDERED: PROPOFOL 200 MG/20 ML VIAL IV ONE (11:02)
--- NOTE | 2016-11-12 12:26 | Hospitalist Progress Note ---
Assessment and Plan (1) Portal vein thrombosis Status: Acute Assessment and plan: Patient was started on Lovenox yesterday 1 mg/kg. Subsequently the abdominal pain is resolved. Patient is doing need to do an ultrasound beside his CT scan on him. Being that he has cirrhosis is at least at risk for hepatocellular carcinoma. Because of the cirrhosis is unknown. Hepatitis panel is negative she denies overuse of alcohol. Alpha-fetoprotein is quite high at 2763. Current Visit: Yes (2) Abdominal pain Status: Acute Assessment and plan: Patient reports that the pain is resolved today. We will continue to follow on this issue Current Visit: Yes (3) Ascites Status: Acute Assessment and plan: This likely secondary to the portal vein thrombosis. This is symptomatic at this time. Current Visit: Yes Hospitalist: Subjective Interval history: Patient has been seen interviewed and examined and chart has been reviewed, admitted with acute abdominal pain that has been recurrent and patent. Found to have portal vein thrombosis significant cirrhosis of the liver of unknown cause is dilated biliary ducts and a variceal presents on a upper endoscopy. Because he is symptomatic the thrombosis is being treated with Lovenox. Symptoms have slowly resolved he remains to have significant structural findings. He is scheduled for MRCP today Exam - Constitutional Vitals: Period Temp Pulse Resp BP Sys/Short Pulse Ox Last 24 Hr 97.2 F-98.2 F 78-88 18-20 111-162/57-84 92-98 General appearance: normal weight, no acute distress - Head Head exam: Present: normal inspection, normocephalic, atraumatic - Eye Eye exam: Present: EOMI, other Pupils: Present: RAMIRO - ENT ENT exam: Present: normal exam - Neck Neck exam: Present: normal inspection - Respiratory Respiratory exam: Present: clear to auscultation bilaterally - Cardiovascular Cardiovascular exam: Present: regular rate and rhythm - GI/Abdominal GI/Abdominal exam: Present: normal bowel sounds, soft - Extremities Exam Extremities exam: Present: full ROM - Back Exam Back exam: Present: normal inspection - Neurological Exam Neurological exam: Present: alert, oriented X3, CN II-XII intact, other (Hard of hearing uses hearing aid) - Psychiatric Psychiatric exam: Present: normal affect, normal mood - Skin Skin exam: Present: normal color, warm, dry Results - Labs CBC & BMP: 11/11/16 04:50 11/11/16 04:50 Lab Results: I have reviewed the past 24 hour labs
--- NOTE | 2016-11-12 14:32 | Magnetic Resonance Report ---
Exam: MR abdomen wo con Date: 11/12/2016 4:00 AM Indication: Cirrhosis Comparison: CT scan 11/10/2016 and ultrasound 11/10/2016. Technical 1.2 Kathy magnet Axial FSE T2, FSE T2 fat-sat, additional FSE T2 imaging. Coronal FSE T2 and MRCP 3-D gradient imaging. The study was performed without intravenous contrast as the patient cannot hold his breath or cooperate for the exam according to the technologist. Findings: Examination reveals a large volume of ascites present. This renders the attempt at 3-D MRCP imaging very limited. No obvious abnormality within the common bile duct the pancreatic duct is not clearly visualized. The liver is small and shrunken in appearance. The gallbladder is demonstrated. The kidneys are demonstrated with slight atrophic appearance of the right kidney as compared to the left. Excretion is present bilaterally. The intraglandular unremarkable. The spleen is intact. The pancreas is demonstrated without obvious ductal dilatation on the axial images. No obvious aneurysm. The aortic and IVC are demonstrated with normal flow voids present. Evaluation of the portal vein without contrast is therefore limited. Impression: 1. Ascites. 2. Shrunken appearance of the liver with nodular cirrhosis present 3. Very poor evaluation of the portal venous system. Due to the fact this patient cannot hear and the technologist was having extreme difficultly with discussing with the patient concerning breath holding with some also complicated secondary to the ascites study is extremely limited for MRCP imaging. Additional triple phase CT scan of the upper abdomen may be of some benefit or follow-up ultrasound to further evaluate the portal venous system with abdominal duplex Doppler imaging. PROCEDURE INTERPRETED AT [facility] DEPARTMENT OF RADIOLOGY Final Report Signed by: Dr. Leland Catalan
[2016-11-12] MEDS: ENOXAPARIN 80 MG/0.8 ML SYRINGE SUBCUT SCH ×2 (15:20→21:52)
[2016-11-12] MEDS: sitaGLIPtin 25 MG TABLET PO SCH (15:21)
[2016-11-12] MEDS: amLODIPine 10 MG TABLET PO SCH (15:21)
--- NOTE | 2016-11-13 09:22 | Gastrointestinal Progress Note ---
<Glenny Posey - Last Filed: 11/13/16 09:20> Assessment and Plan (1) Abdominal pain Status: Acute Assessment and plan: 11/13-triple phase CT scan results pending at this time. No complaints of pain today. Will await results of CT scan. Plan an addendum to follow by Dr. Marroquin. 11/12-EGD findings noted as below. Elevated AFP as below. MRI with MRCP protocol is pending for this morning. Will await these results later today. Plan an addendum to followed by Dr. Marroquin. 11/10-3 month history of epigastric/RUQ abdominal pain with associated episodes of nausea and vomiting, not precipitated by any known factors. Also findings on CT of of hepatic cirrhosis with suggestion of at least partial thrombosus to portal vein, moderate ascites. Elevated LFTs noted as below. Recent endoscopy noted as below. Liver US is pending at this time. Plan and addendum to follow by Dr Marroquin. Current Visit: Yes Gastroenterology - PN: Subj Interval history: CC: Abdominal pain Patient is seen awake and alert with family at bedside. He underwent his triple phase CT scan this morning and we are currently awaiting results from this. He denies any abdominal pain, nausea or vomiting at this time. Abdomen is soft, nontender. Patient did have some episodes of nausea and vomiting last night after eating supper. Patient and his daughter relate this to the food that he ate and states that this is now resolved. ROS: Denies shortness of breath or chest pain Exam (Progress Note) - Constitutional Vitals: Period Temp Pulse Resp BP Sys/Short Pulse Ox Last 24 Hr 97.0 F-98.2 F 76-89 18-21 116-162/62-87 90-97 General appearance: normal weight, no acute distress - Head Head exam: Present: normal inspection, normocephalic - Eye Eye exam: Present: other (Lids and conjunctivae are unremarkable). Absent: scleral icterus - ENT ENT exam: Present: normal exam, normal oropharynx - Neck Neck exam: Present: normal inspection - Respiratory Respiratory exam: Present: clear to auscultation bilaterally. Absent: rales, rhonchi, wheezes - Cardiovascular Cardiovascular exam: Present: regular rate and rhythm. Absent: diastolic murmur , JVD, systolic murmur - GI/Abdominal GI/Abdominal exam: Present: normal bowel sounds, soft. Absent: ascites, distended, mass, organomegaly, tenderness - Extremities Exam Extremities exam: Present: normal inspection, full ROM - Back Exam Back exam: Present: normal inspection - Neurological Exam Neurological exam: Present: alert, oriented X3 - Psychiatric Psychiatric exam: Present: normal affect, normal mood - Skin Skin exam: Present: normal color, warm, dry Results - Labs CBC & BMP: 11/11/16 04:50 11/11/16 04:50 Lab Results: I have reviewed the past 24 hour labs <Dickson Marroquin - Last Filed: 11/13/16 10:30> Exam (Progress Note) - Constitutional Vitals: Period Temp Pulse Resp BP Sys/Short Pulse Ox Last 24 Hr 97.0 F-98.2 F 76-89 18-21 116-162/62-87 90-97 Results - Labs CBC & BMP: 11/11/16 04:50 11/11/16 04:50
[2016-11-13] MEDS ORDERED: POLYETHYLENE GLYCOL POWDER 17 GM PACK PO PRN (09:24)
--- NOTE | 2016-11-13 09:26 | CT Report ---
History: Elevated AFP Date: 11/13/2016 Study: CT abdomen with and without IV contrast Comparison exam: Noncontrast MRI liver 11/12/2016. Hepatic ultrasound October 11, 2016 Technique: Spiral CT sections were obtained from the lung bases to the pubic symphysis following oral contrast and 100 mL Omnipaque [address] exam was performed using one or more of the following dose reduction techniques: Automated exposure control, adjustment of the mA and/or kV according to patient size, or use of iterative reconstruction technique. There is some equivocal right hilar lymphadenopathy noted in the partially visualized right chest. There is prominent coronary artery calcification. There is no rex pneumonia in the partially visualized lung bases. There is moderate ascites. There is mild nonspecific heterogeneity of the enhancement pattern of the liver, though no definite focal hepatic mass is identified. There is thrombosis of the main portal vein and its main tributaries. There are some collateral veins noted in the pericholecystic area. There is no abnormal biliary dilatation. The liver has somewhat of a fine nodular outer contour such as that which can be seen with cirrhosis. There is moderate perihepatic and perisplenic ascites. The exam is otherwise unchanged from the CT abdomen from November 10, 2016. Some occasional scattered calcified granulomata are noted in the otherwise normal spleen. There is nonspecific mild gastrohepatic lymphadenopathy with small lymph nodes measuring 11 mm short axis diameter. There is some fusiform ectasia of the infrarenal abdominal aorta at 24 mm diameter. There is no rex bowel obstruction. There is no focal renal abnormality. There is atrophic change of the right kidney. There is no focal abnormality of the pancreas or adrenal glands. Impression: Portal vein thrombosis as before. There is no gross enhancement of the thrombus to suggest tumor thrombus rather than bland thrombus No focal hepatic mass is identified. Equivocal right hilar lymphadenopathy noted in the partially visualized chest. Consider formal CT chest to confirm lymphadenopathy and to evaluate for potential tissue sampling sources if underlying malignancy is suspected. Mild gastrohepatic lymphadenopathy Ascites Coronary artery calcification PROCEDURE INTERPRETED AT [facility] DEPARTMENT OF RADIOLOGY Final Report Signed by: Dr. Lety Liriano
[2016-11-13] MEDS: PANTOPRAZOLE 40 MG VIAL IV SCH (09:36)
[2016-11-13] MEDS: amLODIPine 10 MG TABLET PO SCH (09:36)
[2016-11-13] MEDS: ENOXAPARIN 80 MG/0.8 ML SYRINGE SUBCUT SCH (09:37)
--- NOTE | 2016-11-13 10:07 | Physician Query Form ---
CLICK EDIT DOCUMENT TO SELECT QUERY ANSWER --> OK --> SIGN Dannielle Nielsen RN, CCDS Certified Clinical Patrol Captain W) [phone] (f) [phone] [email or web address] PROVIDERS: Make your selection(s) from the choices in EACH section by typing an "x" and enter comments in the comment section. Please use your independent medical judgment in providing your response. This request does not imply that any particular answer is desired or expected. CLINICAL INDICATORS: (Providers should not edit this section) The medical record indicates that the patient was admitted with a partial thrombosis of the portal vein, Urinalysis Nitrate "Positive H", Urine WBC 3#, and the Urine CS is "Staphylococcus hominis subsp hominis" >100,000. No antibiotics were noted. Based on the above, could you clarify the appropriate diagnosis, if significant , that supports the above abnormalities and additional evaluation, monitoring, and/or treatment rendered: ( ) Patient is not being monitored or treated for UTI ( ) Patient is being monitored or treated for UTI ( x) Other, please specify: ( ) Clinically unable to determine COMMENTS: Patient with asymptomatic bacteriuria PLEASE ALSO DOCUMENT RESPONSE IN PROGRESS NOTES AND/OR DISCHARGE SUMMARY Use of terms such as suspected, likely, or probable (associated with a specific diagnosis that is being evaluated, monitored, or treated as if it exists) are acceptable and can be restated in the discharge summary if not ruled out. MTDD
[2016-11-13] MEDS: sitaGLIPtin 25 MG TABLET PO SCH (10:16)
--- NOTE | 2016-11-13 11:33 | Discharge Summary ---
<Erickson Gillette - Last Filed: 11/13/16 11:31> Hospital Course - Hospital Course Hospital Course: This is a very pleasant 76-year-old male that presented to the ED at [facility] on the morning of November 10, 2016 for the evaluation of abdominal pain. Patient has a medical history significant for hypertension, non -insulin-dependent diabetes mellitus, GERD, renal calculi, and chronic diarrhea. Patient has surgical history significant for cardiac catheterization with stent placements, cataract removal, EGD, and colonoscopy. The patient reported the onset of symptoms at midnight on last night. He reported that the pain has been a chronic issue and is mostly isolated to the umbilical area. He reported his last bowel movement was on yesterday; in which she described it as "black". The patient is generally followed in the outpatient setting by Dr. Dickson Marroquin. He reported that he has recently undergone a colonoscopy under the direction of Dr. Marroquin with polypectomy. He was told by Dr. Marroquin that his GI bleeding was likely secondary to angiodysplasia. The patient denied any current alcohol use however, reports daily tobacco use. The abdominal pain became very severe prompting the patient to present to the ED for further evaluation. The patient was seen and assessed at the time of ED presentation. Labs were obtained; complete blood count reported white blood cell count is 7.0, hemoglobin 9.2, hematocrit 27.6, and platelet count at 208. Comprehensive metabolic profile reported sodium at 136, potassium 4.5, chloride 102, carbon dioxide 27, BUN 22, creatinine 1.80, glucose 130, lactic acid 0.8, calcium 8.9, total bilirubin 1.00, AST 185, ALT 132, alkaline phosphatase 616, total protein 6.6, and albumin 2.8. Urinalysis was positive for nitrates and urobilinogen greater than 2.0. Abdominal x-ray reported no evidence of acute abnormality. Chest x-ray reported a small right upper lobe nodule possibly [employer] of granuloma. CT abdomen pelvis reported hepatic cirrhosis with suggestion of at least partial thrombosis of the portal vein, moderate ascites, enhancement of collaterals in the gallbladder. The patient was subsequently admitted to the hospitalist service for continuation of care. The patient was gently rehydrated and protein pump inhibitors were initiated. A gastroenterology consultation was requested. The patient was evaluated and on November 11, 2016, the patient underwent esophagogastroduodenoscopy under the direction of Dr. Dickson Marroquin which was significant for changes of portal hypertension without evidence of active bleeding, however no clear source of nausea and vomiting was identified. To assist in further evaluation, the patient was recommended to undergo MRI. On November 12, 2016, the patient underwent MRI of the abdomen without contrast which was significant for ascites , shrunken appearance of the liver with nodular cirrhosis present, and very poor evaluation of the portal venous system. Tumor markers were ordered for diagnostic purposes which reported a significant elevated AFP at 2763 and CA-19- 9 9 was unremarkable. Gastroenterology spoke with patient on the need of probable liver biopsy for further evaluation; in the outpatient setting. The patient's condition is stable. The patient has not experienced any significant overnight events. Today, we feel that the patient is indeed appropriate for discharge to follow-up with his primary care physician, office worker, and outpatient interventional radiology as indicated. The patient has been prescheduled for outpatient liver biopsy with interventional radiology on November 18, 2016. Diagnosis - Discharge Diagnosis (1) Portal vein thrombosis Status: Acute (2) Abdominal pain Status: Acute (3) Ascites Status: Acute Discharge Plan - Discharge Data Disposition: Disch To Home/Self Care Condition at Discharge: Stable Activity: resume usual activities as tolerated Hygiene: no restrictions Driving: other (Avoid cuts. Patient is on it coagulation with Lovenox. This Lovenox will need to be stopped 12 to 24 hours prior to liver biopsy which is been planned for next week. This is discussed with the GI nurse practitioner) Contact your physician if you experience:: fever over 101, Redness or swelling, Nausea/Vomiting, Shortness of breath, Bleeding, pain uncontrolled by pain medications - Discharge Medications New Enoxaparin [Lovenox] 80 mg SUBCUT Q12H #60 syringe Continue Amlodipine Besylate 10 mg PO DAILY glipiZIDE [Glipizide ER] 2.5 mg PO DAILY Hyoscyamine Sulfate 0.125 mg PO Q4H PRN PRN Reason: STOMACH PAINS Loperamide HCl [Loperamide] 2 mg PO Q6H PRN PRN Reason: Diarrhea Esomeprazole Magnesium [Esomeprazole] 40 mg PO BID Linagliptin [Tradjenta] 5 mg PO DAILY - Follow Up or Referral - Forms/Instructions Exam - Constitutional Vitals: Period Temp Pulse Resp BP Sys/Short Pulse Ox Last 24 Hr 97.0 F-98.2 F 76-90 18-21 116-152/61-87 90-97 General appearance: normal weight, no acute distress - Head Head exam: Present: normocephalic, atraumatic - ENT ENT exam: Present: normal exam, other (Hard of hearing) - Neck Neck exam: Present: normal inspection - Respiratory Respiratory exam: Present: clear to auscultation bilaterally - Cardiovascular Cardiovascular exam: Present: regular rate and rhythm - GI/Abdominal GI/Abdominal exam: Present: normal bowel sounds, soft - Extremities Exam Extremities exam: Present: full ROM - Neurological Exam Neurological exam: Present: alert, oriented X3, CN II-XII intact - Psychiatric Psychiatric exam: Present: normal affect, normal mood - Skin Skin exam: Present: normal color, warm, dry Discharge Results Procedures and tests throughout hospitalization: Pending Orders 11/11/16 11:00 [id number], S Routine Ceruloplasmin Routine Mitochondrial Antibody (M2) Routine 11/18/16 11:48 CT biopsy liver w core Routine Labs on day of discharge: Labs from last 24 hours 11/13/16 11/13/16 11/12/16 11:25 07:10 19:41 POC Glucose 157 H 115 H 130 H 11/12/16 11/12/16 16:12 15:19 POC Glucose 117 H 96 - Additional Comments Patient had a CT scan of the abdomen attention paid to the liver. Instructions on the pancreas today. He is a special protocol CT scan confirms presence of portal vein thrombosis which is being treated. There were no masses found in the liver or pancreas. She is going home on Lovenox for management of this portal vein thrombosis given for that she came in with symptoms which subsided day after initiating anticoagulation. There is breathing with risk given the fact that does have history of angiodysplasia. He is 76 years of age (older than 65) use of DOAC's has high incidence of GI bleeding in this age group on Coumadin Cardizem is high risk of complicated bleeding given its long half- life. Recommendation is to use Lovenox. Patient is planned for liver biopsy next week. Lovenox will be stopped 12-24 hrs. prior to the procedure. Results of alpha-1 antitrypsin's are pending ceruloplasmin is pendingmitochondrial antibody sent are pending. DS: Provider Date of admission: 11/10/16 12:57 Primary care physician: . No PCP Attending physician on admission: Erickson Gillette MD Consults: 11/10/16 13:00 Consult to Physician [CONS] Routine Comment: Consulting Provider: Dickson Marroquin When should Consulting Provider be notified: Now Person Notified: KODY LANDA [employer]ILE ROUNDING Date Notified: 11/10/16 Time Notified: 15:05 11/10/16 14:54 Consult to Dietitian [CONS] Routine Reason for Dietitian: Diet Instruction Other 11/12/16 09:41 Consult to Case Mgmt/Social Srvs [CONS] Routine Reason for Case Mgmt/Social Srvs: Other Consult Comment: medication will lovenox 80mg BID be cover insu - marte Discharging clinician: Erickson Gillette MD <Meena Hill - Last Filed: 11/13/16 12:18> Diagnosis - Discharge Diagnosis (1) Abdominal pain Status: Acute (2) Anemia Status: Acute (3) Elevated LFTs Status: Acute (4) Chronic renal failure, stage 3 (moderate) Status: Acute
[2016-11-13 11:44] VITALS: BP 119/61
[2016-11-13 14:34] LABS: Mitochondrial Antibody (M2) <0.1 U
[2016-11-19 10:30] LABS: Ceruloplasmin 41 mg/dL (18-36)
== END 2016-11-13 12:25 | disposition home health service (06) | DRG 442 ==
LOC: N.ED 06:31 → N.EDINP 12:57 → N.2E 14:28
PROVIDERS: ADMIT Internal Medicine Infectious Disease; ATTEND Internal Medicine Infectious Disease

== ENCOUNTER 2016-12-22 15:24 | Inpatient (IN) ==
[2016-12-22] MEDS ORDERED: MYLANTA/LIDO VISC 2:1 300 ML BOTTLE SWISH/SPIT PRN (16:46)
[2016-12-22] MEDS ORDERED: MYLANTA/LIDO VISC 2:1 300 ML BOTTLE SWISH/SWAL PRN (16:46)
[2016-12-22] MEDS ORDERED: ALPRAZolam 0.25 MG TABLET PO PRN (16:46)
[2016-12-22] MEDS ORDERED: PROMETHAZINE INJ 25 MG in SODIUM CHLORIDE 0.9% 50 ML IV PRN (16:46)
[2016-12-22] MEDS ORDERED: chlorproMAZINE 25 MG TABLET PO PRN (16:46)
[2016-12-22] MEDS ORDERED: ALUMINUM/MAGNES/SIMETH MAX STR 30 ML UDCUP PO PRN (16:46)
[2016-12-22] MEDS ORDERED: ONDANSETRON 4 MG/2 ML VIAL IV PRN (16:46)
[2016-12-22] MEDS ORDERED: MAGNESIUM HYDROXIDE SUSP 30 ML UDCUP PO PRN (16:46)
[2016-12-22] MEDS ORDERED: chlorproMAZINE INJ 50 MG in SODIUM CHLORIDE 0.9% 100 ML IV PRN (16:46)
[2016-12-22] MEDS ORDERED: guaiFENesin 200 MG/10 ML UDCUP PO PRN (16:46)
[2016-12-22] MEDS ORDERED: chlorproMAZINE INJ 25 MG in SODIUM CHLORIDE 0.9% 100 ML IV PRN (16:46)
[2016-12-22] MEDS ORDERED: BENZTROPINE 2 MG/2 ML AMP IV PRN (16:46)
[2016-12-22] MEDS ORDERED: LOPERAMIDE 2 MG CAPSULE PO PRN ×2 (16:46)
[2016-12-22] MEDS ORDERED: LACTULOSE 20 GM/30 ML UDCUP PO PRN (16:46)
[2016-12-22] MEDS ORDERED: diphenhydrAMINE CAP 25 MG CAPSULE PO PRN (16:46)
[2016-12-22] MEDS ORDERED: TEMAZEPAM 7.5 MG CAPSULE PO PRN (16:46)
[2016-12-22] MEDS ORDERED: SODIUM CHLORIDE 0.9% 1,000 ML IV SCH (17:00)
[2016-12-22] MEDS ORDERED: PANTOPRAZOLE 40 MG VIAL IV ONE (17:17)
[2016-12-22] MEDS: LACTULOSE 20 GM/30 ML UDCUP PO SCH (17:56)
[2016-12-22] MEDS ORDERED: SODIUM CHLORIDE 0.9% 250 ML IV PRN (19:18)
[2016-12-23 06:41] LABS: Basophils % 0.1 % (0.0-0.8); Eosinophils # 0.1 10*3/uL (0.0-0.87); Eosinophils % 0.4 % (0.00-10.9); Hematocrit 25.1 VOL% (42.0-52.0); Hemoglobin 8.4 GM/DL (14.0-18.0); Immature Granulocytes % 1.8 %; Immature Granulocytes Absolute 0.27 #; Lymphocytes # 1.8 10*3/uL (1.4-4.0); Lymphocytes % 12.3 % (21.2-54.2); Mean Corpuscular HGB Conc 33.5 GM/DL (32-36); Mean Corpuscular Hemoglobin 27 PG (27-34); Mean Corpuscular Volume 80.2 FL (87-102); Monocytes # 1.2 10*3/uL (0.11-0.8); Monocytes % 8.1 % (1.7-12.7); NRBC # 0.16 10*3/uL; Neutrophils # 11.6 10*3/uL (1.4-7.4); Neutrophils % 77.3 % (38.7-73.9); Platelet Count 253 T/CUMM (130-400); Red Blood Count 3.13 MC/CUMM (3.8-5.5); Red Cell Distribution Width 20.6 % (9.3-17.3)
[2016-12-23 07:10] LABS: Albumin 1.9 G/DL (3.4-5.0); Bilirubin,Total 3.7 MG/DL (0.2-1.0); Calcium 7.8 MG/DL (8.5-10.1); Magnesium 2.9 MG/DL (1.8-2.4); Osmolality,Calculated 281.7 MOS/KG (273-304); Potassium 5.1 MMOL/L (3.5-5.1); Total Protein 5.7 G/DL (6.4-8.3)
--- NOTE | 2016-12-23 08:48 | Oncology History&Physical ---
Assessment and Plan (1) Acute blood loss anemia Status: Acute Assessment and plan: The patient is requesting discharge to home and states he feels better. I have explained to his son that he needs to be monitored for at least 24 hours to ensure that his hematocrit will hold. He only had a two-point increase with 2 units of transfusion. I am hopeful that permanent discontinuation of Lovenox will help to keyla the falling hematocrit. He needs some degree of diuresis for his ascites which has required paracentesis previously. I felt that his volume status was actually depleted yesterday and given the elevated creatinine I did not institute diuretics. I actually have given him some fluids overnight at 40 cc an hour which are discontinued today. He ate all of his breakfast. He still has some hiccups though he does not report nausea. Regarding his hepatocellular carcinoma he does not want chemotherapy and we discussed best supportive care measures only yesterday with his family. We discussed DO NOT RESUSCITATE which is now in place. The family did not seem ready to pursue strictly palliative care such as home hospice at this time Current Visit: No History of Present Illness Chief complaint: Hepatocellular carcinoma History of present illness: Mr. Harrell is a 76 year old male Seen as an initial visit in my office yesterday. The patient was ill-appearing and surrounded by several family members. He was noted to be in acute renal failure and also profoundly anemic with hematocrit of 23. Multiple previous hospital records were reviewed showing prior EGD in late September with ulcerations present. The patient was apparently on Plavix at that time and this was discontinued. Also found out today from his son at the bedside that he was receiving twice daily Lovenox 80 mg for the last several weeks. The family had suspected some bleeding and had actually decreased this to once daily. His last dose was on Wednesday. He does have dark stools by his son's report. He seemed confused and disoriented yesterday in the office and he was started on lactulose for which she has had several bowel movements overnight. The reason for the Lovenox appeared to have been portal vein thrombosis. Liver biopsy confirms hepatocellular carcinoma performed several weeks prior Home Medications Medication Instructions Recorded Confirmed Type Amlodipine Besylate 10 mg PO DAILY 09/18/16 11/20/16 History Hyoscyamine Sulfate 0.125 mg PO Q4H PRN 09/18/16 11/20/16 History Linagliptin [Tradjenta] 5 mg PO DAILY 09/18/16 11/20/16 History Loperamide HCl [Loperamide] 2 mg PO Q6H PRN 09/18/16 11/20/16 History glipiZIDE [Glipizide ER] 2.5 mg PO DAILY 09/18/16 11/20/16 History Esomeprazole Magnesium 20 mg PO DAILY 11/10/16 11/20/16 History [Esomeprazole] Enoxaparin [Lovenox] 80 mg SUBCUT Q12H #60 syringe 11/13/16 11/20/16 Rx Allopurinol [Zyloprim] 100 mg PO DIRECTED PRN 11/20/16 11/20/16 History Ondansetron [Ondansetron Odt] 4 mg PO Q4H PRN #10 tab.rapdis 12/17/16 Rx Allergies Allergy/AdvReac Type Severity Reaction Status Date / Time codeine Allergy Intermediate Agitated Verified 11/20/16 07:53 Medical,Surgical,& Family Hx - Medical History Cardio: History of: Hypertension Psychological: No history of: Anxiety Disorders, ADHD, Behavior Problems, Bipolar Disorder, Depression, Previous Suicide Attempt, Psychiatric/Substance Abuse Tx, Schizophrenia, Violent Behavior, Psychiatric Problems Neurology: No history of: Seizures HEENT: History of: Ear Problem (HARD OF HEARING), Dental Problems (FULL SET OF DENTURES) Endocrine: History of: Diabetes Mellitus (NIDDM) Rheumatology: History of;: Gout Renal: No history of: Renal Problems Genitourinary: History of: Kidney Stones, Problems (STENT IN LEFT ARM FOR DIALYSIS, NEVER USED) No history of: Bladder Problem Gastrointestinal: History of: GERD, Liver Problems (liver cancer), GI Problems Musculoskeletal: History of: Musculoskeletal Problems (ARTHRITIS) Hematology: History of: Anemia - Surgical History Cardiac Surgeries: Sugical HX of: Cardiac Catheterization (STENT) HEENT Surgeries: Surgical HX of: Eye Surgery (cataract) Patient denies: Tonsilectomy & Adenoidectomy Abdominal Surgeries: Surgical HX of: EGD Patient denies: Appendectomy, Cholecystectomy Orthopedic Surgeries: Patient denies;: Orthopedic Surgery - Family History Family History: Reports;: Family Diabetes (mother), Family Heart Disease (father ) - Social History Smoking Status: Current every day smoker - Constitutional Constitutional: Present: fatigue, malaise, weakness. Absent: fever(s), night sweats - EENT Eye: Absent: loss of vision Ears: Absent: ear discharge, ear pain Nose, mouth and throat: Absent: epistaxis, neck mass, neck pain, odynophagia, sore throat - Cardiovascular Cardiovascular ROS IM: Absent: chest pain - Respiratory Respiratory: Absent: cough - Gastrointestinal Gastrointestinal: Present: abdominal pain, early satiety, melena, nausea, vomiting, jaundice. Absent: constipation - Musculoskeletal Musculoskeletal ROS: Present: back pain - Psychiatric Psychiatric General: Present: confusion - Hematologic/Lymphatic Hematologic/Lymphatic: Present: easy bleeding Exam - Constitutional Vitals: Period Temp Pulse Resp BP Sys/Short Pulse Ox Last 24 Hr 96.6 F-98.2 F 76-97 18-20 104-153/54-70 94-100 General appearance: under weight, no severe distress - Head Head Exam: Present: normocephalic, atraumatic - Eye Eye Exam: Present: EOMI, scleral icterus. Absent: conjunctival injection, periorbital swelling Pupils: Present: PERRL, normal accommodation - ENT ENT exam: Present: normal external ear exam - Neck Neck exam: Present: normal inspection. Absent: lymphadenopathy - Respiratory Respiratory exam: Present: CTAB. Absent: accessory muscle use - Cardiovascular Cardiovascular exam: Present: RRR. Absent: tachycardia - GI/Abdominal GI/Abdominal exam: Present: ascites, distended. Absent: firm, guarding, tenderness - Neurological Exam Neurological exam: Present: alert, CN II-XII intact, other (Oriented to person place and situation. Could not name the day of the week or the current month) - Psychiatric Psychiatric exam: Absent: depressed, flat affect - Skin Skin exam: Present: warm, dry Results - Labs CBC & BMP: 12/23/16 06:26 12/23/16 06:26
[2016-12-23] MEDS: PANTOPRAZOLE 40 MG VIAL IV SCH (09:04)
[2016-12-23] MEDS: LACTULOSE 20 GM/30 ML UDCUP PO SCH (09:04)
[2016-12-24 04:21] LABS: Basophils % 0.1 % (0.0-0.8); Eosinophils # 0.1 10*3/uL (0.0-0.87); Eosinophils % 0.5 % (0.00-10.9); Hematocrit 24.5 VOL% (42.0-52.0); Hemoglobin 8.3 GM/DL (14.0-18.0); Immature Granulocytes % 1.5 %; Immature Granulocytes Absolute 0.22 #; Lymphocytes # 1.4 10*3/uL (1.4-4.0); Lymphocytes % 9.6 % (21.2-54.2); Mean Corpuscular HGB Conc 33.9 GM/DL (32-36); Mean Corpuscular Hemoglobin 27 PG (27-34); Mean Corpuscular Volume 79.5 FL (87-102); Monocytes # 1.1 10*3/uL (0.11-0.8); Monocytes % 7.3 % (1.7-12.7); NRBC # 0.12 10*3/uL; Neutrophils # 12.2 10*3/uL (1.4-7.4); Platelet Count 255 T/CUMM (130-400); Red Blood Count 3.08 MC/CUMM (3.8-5.5); Red Cell Distribution Width 20.5 % (9.3-17.3)
[2016-12-24 04:56] LABS: Albumin 1.9 G/DL (3.4-5.0); Bilirubin,Total 4.1 MG/DL (0.2-1.0); Calcium 7.6 MG/DL (8.5-10.1); Osmolality,Calculated 280.7 MOS/KG (273-304); Potassium 5.1 MMOL/L (3.5-5.1); Total Protein 5.6 G/DL (6.4-8.3)
[2016-12-24 05:14] LABS: Giant Platelets Few; Hypochromasia 1+; Ovalocytes Slight; Platelet Estimate Adequate
[2016-12-24 05:15] LABS: Microcytosis Slight
--- NOTE | 2016-12-24 08:23 | Discharge Summary ---
Hospital Course - Hospital Course Hospital Course: Patient with newly diagnosed hepatocellular carcinoma who is not pursuing chemotherapy. He was admitted from my office on his day of initial clinic visit. This was 48 hours ago. At that time he had an elevated creatinine which is now known to be acute on chronic kidney failure. He does have an elevated bilirubin and evidence of progressing hepatic dysfunction. He has ascites on physical examination with previous paracentesis. We are planning for discharge home today however we will attempt inpatient paracentesis prior to discharge. He was given 2 units of red blood cells with a slight improvement in his hematocrit. This is been stable over the last 24 hours from 25 to today's level of 24. He seems to have an adequate appetite with no nausea or dysphasia at this time. He was placed on IV PPI while hospitalized and this will be converted back to home dosing of oral proton pump inhibitor. He has had no bowel movement during the night. There was some concern for possible melena although he did report some Pepto-Bismol ingestion several days prior to presentation. Exam is notable for mild occasional confusion. Moderate bilateral icterus and moderate to large ascites. He has decreased muscle mass and tone. He is moving all extremities. His son is at bedside this morning with plan of care discussed and understood. I am providing him with Aldactone prescription 25 mg twice daily with instructions to hold this on days he has inadequate oral intake. I would like labs collected around 10 days from today with his local doctor's office; these are written on a prescription pad and will be given to the patient's family. I would plan further clinic follow-up in approximately 3 weeks. Diagnosis - Discharge Diagnosis (1) Acute blood loss anemia Status: Acute Discharge Plan - Discharge Medications New Lactulose Liquid [Chronulac] 20 gm PO DAILY Continue Amlodipine Besylate 10 mg PO DAILY glipiZIDE [Glipizide ER] 2.5 mg PO DAILY Esomeprazole Magnesium [Esomeprazole] 20 mg PO DAILY Linagliptin [Tradjenta] 5 mg PO DAILY Allopurinol [Zyloprim] 100 mg PO DIRECTED PRN PRN Reason: Gout Ondansetron [Ondansetron Odt] 4 mg PO Q4H PRN #10 tab.rapdis PRN Reason: Nausea Discontinued Hyoscyamine Sulfate 0.125 mg PO Q4H PRN PRN Reason: STOMACH PAINS Loperamide HCl [Loperamide] 2 mg PO Q6H PRN PRN Reason: Diarrhea Enoxaparin [Lovenox] 80 mg SUBCUT Q12H #60 syringe - Follow Up or Referral - Forms/Instructions Exam - Constitutional Vitals: Period Temp Pulse Resp BP Sys/Short Pulse Ox Last 24 Hr 97.0 F-98.3 F 85-112 16-20 103-135/52-62 93-100 Discharge Results Procedures and tests throughout hospitalization: Pending Orders 12/23/16 17:09 Occult Blood, Stool Routine 12/24/16 08:17 Consult to Interventional Rad Routine 12/25/16 04:00 CBC [Comp Blood Count Auto Diff] IN AM CMP [Comprehensive Metabolic Panel] IN AM Magnesium IN AM 12/26/16 04:00 CBC [Comp Blood Count Auto Diff] IN AM CMP [Comprehensive Metabolic Panel] IN AM Magnesium IN AM Labs on day of discharge: Labs from last 24 hours 12/24/16 12/24/16 12/24/16 07:52 04:00 04:00 WBC 15.0 H RBC 3.08 L Hgb 8.3 L Hct 24.5 L MCV 79.5 L MCH 27 MCHC 33.9 RDW 20.5 H Plt Count 255 Neut % (Auto) 81.0 H Lymph % (Auto) 9.6 L [place] % (Auto) 7.3 Eos % (Auto) 0.5 Baso % (Auto) 0.1 Neut # (Auto) 12.2 H Lymph # (Auto) 1.4 [place] # (Auto) 1.1 H Eos # (Auto) 0.1 Baso # (Auto) 0.0 Immature Gran % 1.5 Nucleated RBC % 0.8 Immature Gran # 0.22 Nucleated RBCs # 0.12 Platelet Estimate Adequate Giant Platelets Few Immature Plt Fraction 0.0 Hypochromasia 1+ Microcytosis Slight Ovalocytes Slight Sodium Potassium Chloride Carbon Dioxide Anion Gap BUN Creatinine GFR Calculation BUN/Creatinine Ratio Glucose POC Glucose 158 H Calculated Osmolality Calcium Magnesium 2.7 H Total Bilirubin AST ALT Alkaline Phosphatase Total Protein Albumin Globulin Albumin/Globulin Ratio 12/24/16 12/23/16 04:00 11:49 WBC RBC Hgb Hct MCV MCH MCHC RDW Plt Count Neut % (Auto) Lymph % (Auto) [place] % (Auto) Eos % (Auto) Baso % (Auto) Neut # (Auto) Lymph # (Auto) [place] # (Auto) Eos # (Auto) Baso # (Auto) Immature Gran % Nucleated RBC % Immature Gran # Nucleated RBCs # Platelet Estimate Giant Platelets Immature Plt Fraction Hypochromasia Microcytosis Ovalocytes Sodium 131 L Potassium 5.1 Chloride 99 Carbon Dioxide 25 Anion Gap 12.1 BUN 61 H Creatinine 2.00 H GFR Calculation 37 BUN/Creatinine Ratio 30.00 H Glucose 142 H POC Glucose 191 H Calculated Osmolality 280.7 Calcium 7.6 L Magnesium Total Bilirubin 4.10 H AST 273 H ALT 142 H Alkaline Phosphatase 794 H Total Protein 5.6 L Albumin 1.9 L Globulin 3.7 H Albumin/Globulin Ratio 0.5 L DS: Provider Date of admission: 12/22/16 19:20 Primary care physician: Rd Orlando MD Attending physician on admission: Dillon Rachel MD Consults: 12/22/16 17:10 Consult to Dietitian [CONS] Routine Reason for Dietitian: Diet Instruction Discharging clinician: Dillon Rachel MD
[2016-12-24] MEDS: PANTOPRAZOLE 40 MG VIAL IV SCH (08:29)
[2016-12-24] MEDS: LACTULOSE 20 GM/30 ML UDCUP PO SCH (08:30)
[2016-12-24 10:12] VITALS: BP 111/54
--- NOTE | 2016-12-24 18:06 | Ultrasound Report ---
History: Recurrent ascites Date: 12/24/2016 Study: Ultrasound guided paracentesis Comparison exam: December 17, 2016 Ultrasound-guided paracentesis Description: A formal timeout was performed. The right lower quadrant was prepped and draped in sterile fashion. Under sonographic guidance, a 6 Telugu pigtail catheter was advanced into the ascites using trocar technique by this radiologist. A captured sonographic image documents needle position. The needle was removed. Through the catheter, we obtained a total of 3600 cc of straw-colored ascites. No additional fluid could be obtained. Therefore, the catheter was removed. A bandage was placed at the puncture site. The patient tolerated the procedure well. The patient was allowed to leave after hemostasis had been achieved. Impression: Ultrasound-guided paracentesis. PROCEDURE INTERPRETED AT [facility] DEPARTMENT OF RADIOLOGY Final Report Signed by: Dr. Lety Liriano
--- NOTE | 2016-12-25 08:39 | Physician Query Form ---
CLICK EDIT DOCUMENT TO SELECT QUERY ANSWER --> OK --> SIGN Orin Mcdaniels RN Clinical Programming Equipment Operator W) [phone] (f) [phone] [email or web address] PROVIDERS: Make your selection(s) from the choices in EACH section by typing an "x" and enter comments in the comment section. Please use your independent medical judgment in providing your response. This request does not imply that any particular answer is desired or expected. CLINICAL INDICATORS: (Providers should not edit this section) Based on documentation of "He seemed confused and disoriented yesterday in the office and he was started on lactulose for which she has had several bowel movements overnight." "elevated bilirubin and evidence of progressing hepatic dysfunction" "Exam is notable for mild occasional confusion." ACUITY: ( x) Acute ( ) Acute on Chronic ( ) Chronic ( ) Clinically unable to determine NATURE: ( ) Delirium due to general medical condition ( ) Dementia ( x) Encephalopathy ( ) Unconscious ( ) Transient level of awareness ( ) Comatose ( ) Locked-in State ( ) Persistent Vegetative State ( ) Other, please specify: ( ) Clinically unable to determine Please indicate the underlying cause of the altered mental status (CHECK ALL THAT APPLY): ( ) Baseline dementia ( ) Alzheimer's disease ( ) Parkinson's disease ( ) Lewy body dementia ( ) Acute stroke ( ) Late effect of stroke ( ) Reactive (from emotional stress, psychological trauma) ( ) Due to narcotics/other drugs ( ) Post procedural delirium ( ) Transient ischemic attack ( ) Generalized cerebral edema ( ) Normal pressure hydrocephalus ( ) Psychiatric illness ( ) Other, please specify: ( ) Clinically unable to determine Please indicate if there is an infection, sepsis, dehydration or specific organ failure that is causing the dementia. Be specific with clarifying the relationship between that process and the mental status change. COMMENTS: PLEASE ALSO DOCUMENT RESPONSE IN PROGRESS NOTES AND/OR DISCHARGE SUMMARY Use of terms such as suspected, likely, or probable (associated with a specific diagnosis that is being evaluated, monitored, or treated as if it exists) are acceptable and can be restated in the discharge summary if not ruled out. MTDD
--- NOTE | 2016-12-25 08:50 | Physician Query Form ---
CLICK EDIT DOCUMENT TO SELECT QUERY ANSWER --> OK --> SIGN Orin Mcdaniels RN Clinical Keno Attendant W) [phone] (f) [phone] [email or web address] PROVIDERS: Make your selection(s) from the choices in EACH section by typing an "x" and enter comments in the comment section. Please use your independent medical judgment in providing your response. This request does not imply that any particular answer is desired or expected. CLINICAL INDICATORS: (Providers should not edit this section) Based on documentation of "profoundly anemic with hematocrit of 23" " found out today from his son at the bedside that he was receiving twice daily Lovenox 80 mg for the last several weeks. The family had suspected some bleeding and had actually decreased this to once daily. His last dose was on Wednesday. He does have dark stools by his son's report" " given 2 units of red blood cells with a slight improvement in his hematocrit." "Acute blood loss anemia" Based on the above, could you clarify the appropriate diagnosis, if significant , that supports the above abnormalities and additional evaluation, monitoring, and/or treatment rendered: ( ) Hemorrhagic disorder extrinsic circulating anticoagulants ( ) Hemorrhagic disorder NOT due to extrinsic circulating anticoagulants ( ) Other, please specify: ( x) Clinically unable to determine CHARLES COMMENTS: PLEASE ALSO DOCUMENT RESPONSE IN PROGRESS NOTES AND/OR DISCHARGE SUMMARY Use of terms such as suspected, likely, or probable (associated with a specific diagnosis that is being evaluated, monitored, or treated as if it exists) are acceptable and can be restated in the discharge summary if not ruled out. MTDD
== END 2016-12-24 11:50 | disposition home or self-care (01) | DRG 682 ==
LOC: N.4E 15:39
PROVIDERS: ADMIT Specialist; ATTEND Specialist